=== PATIENT | male | born 1965 | race Caucasian/White ===

== ENCOUNTER 2018-09-17 06:10 | Emergency (ER) | payer BC ==
[2018-09-17 06:16] VITALS: BP 169/90; PULSE 70; RESP 18; TEMP 99.2
[2018-09-17] MEDS ORDERED: predniSONE 50 MG TAB PO STA (07:26)
[2018-09-17] MEDS ORDERED: IBUPROFEN 400 MG TAB PO STA (07:27)
--- NOTE | 2018-09-17 07:34 | ED ---
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 He states this feels similar to other extremities is had in the past the same problem he believes it is arthritis he denies any particular injury or strain and may have occurred with this he has no other complaints or any other type of injury or pain chills nausea times sweats shortness of breath abdominal pain. The loss of function to his extremities. States the pain is between 5-7/10 severity he states he's had before either steroid Dosepak or other anti-inflammatory pain medication and she helps. He denies any other injury no urinary or fecal incontinence issues. - Related Data Previous Rx's Medication Instructions Recorded Ibuprofen 800 mg PO Q6HR PRN #20 tablet 09/17/18 methylPREDNISolone Dose Pack 4 mg PO DIRECTED #21 package 09/17/18 [Medrol Dose Pack] Allergies Allergy/AdvReac Type Severity Reaction Status Date / Time No Known Allergies Allergy Verified 09/17/18 06:16 Review of Systems ROS Statement: Those systems with pertinent positive or pertinent negative responses have been documented in the HPI. ROS Other: All systems not noted in ROS Statement are negative. Past Medical History Past Medical History: Osteoarthritis (OA) History of Any Multi-Drug Resistant Organisms: None Reported Past Surgical History: No Surgical Hx Reported Past Psychological History: No Psychological Hx Reported Smoking Status: Never smoker Past Alcohol Use History: None Reported Past Drug Use History: None Reported General Exam - General Exam Comments Initial Comments: This is a well-developed well-nourished awake alert oriented 3 male Limitations: physical limitation General appearance: alert, anxious Eye exam: Present: normal appearance, PERRL, EOMI. Absent: scleral icterus, conjunctival injection, periorbital swelling Neck exam: Present: normal inspection, full ROM Respiratory exam: Present: normal lung sounds bilaterally. Absent: respiratory distress, wheezes, rales, rhonchi, stridor Cardiovascular Exam: Present: regular rate, normal rhythm, normal heart sounds. Absent: systolic murmur, diastolic murmur, rubs, gallop, clicks GI/Abdominal exam: Present: soft, normal bowel sounds. Absent: distended, tenderness, guarding, rebound, rigid Extremities exam: Present: normal inspection, full ROM, tenderness (Very minimal tenderness palpation of the mid inguinal crease no evidence of any herniations. No tenderness below this palpation DTRs are maintained to us bilateral patellar.), normal capillary refill. Absent: pedal edema, joint swelling, calf tenderness Back exam: Present: normal inspection. Absent: full ROM (Him a limited range of motion secondary to pain) Neurological exam: Present: alert, oriented X3, CN II-XII intact Psychiatric exam: Present: normal affect, normal mood Skin exam: Present: warm, dry, intact, normal color. Absent: rash Course Vital Signs 09/17/18 06:14 Temperature 99.2 F Pulse Rate 70 Respiratory 18 Rate Blood Pressure 169/90 O2 Sat by Pulse 96 Oximetry Medical Decision Making - Medical Decision Making No further workup was indicated this time patient did demonstrate some tenderness palpation with anal crease but no evidence of any herniation. He believes is identical to previous pains in the past due to his "arthritis" this is likely represent a variant of sciatica. Patient will be placed on anti- inflammatories he is up with his doctor return when necessary he is in agreement with this. Disposition Clinical Impression: Sciatica, right side Disposition: HOME SELF-CARE Condition: Good Prescriptions: Ibuprofen 800 mg PO Q6HR PRN #20 tablet PRN Reason: Pain methylPREDNISolone Dose Pack [Medrol Dose Pack] 4 mg PO DIRECTED #21 package Is patient prescribed a controlled substance at d/c from ED?: No Referrals: Paul Lea MD [Primary Care Provider] - 1-2 days
== END 2018-09-17 07:53 | disposition home or self-care (01) ==
LOC: EC 06:10
DX: M54.31 Sciatica, right side (principal); M19.90 Unspecified osteoarthritis, unspecified site
CPT/HCPCS: 99283

== ENCOUNTER → 2019-02-13 | Outpatient (CLI) | payer BC ==
--- NOTE | 2019-02-13 23:17 | CONS ---
CONSULTATION DATE OF SERVICE: 02/13/2019 This patient is a 53-year-old gentleman who has been evaluated in the sleep center for possible obstructive sleep apnea-hypopnea syndrome. HISTORY OF PRESENT ILLNESS/SLEEP-WAKE EVALUATION: The patient works 7 days a week from 8 p.m. until 11:30 a.m. and then he goes home and sleeps from around 1 p.m. until 4:30 p.m. Then he prepares to go to work. No problems with falling asleep. He falls asleep very quickly. He puts the TV on while he is in the bedroom to prevent barking of his dogs. He usually sleeps on the back position. He feels sleepy after awakening. He has difficulties paying attention during the day. [place] Sleepiness Scale is in the extremely high range of 24. PAST MEDICAL HISTORY: 1. Hyperlipidemia. 2. Narrowing of carotid artery. 3. 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 4. Nasal fracture in childhood. PAST SURGICAL HISTORY: Cholecystectomy. MEDICATIONS: Medication for hyperlipidemia; patient does not remember the name exactly. SOCIAL HISTORY: Negative for smoking or using alcohol. FAMILY HISTORY: Positive for Hodgkin's lymphoma in his father. REVIEW OF SYSTEMS: Tiredness and sleepiness during the day. PHYSICAL EXAMINATION: GENERAL: A pleasant gentleman without distress. VITAL SIGNS: BP 120/82, HR 64, RR 16, height 5 feet 9 inches, weight 235, body mass index 34.7, temperature 98.3, oxygen saturation at room air 95%. HEENT: PERRLA, EOMI. Evaluation of oropharynx showed tongue protrudes midline. Extremely low position of soft palate. Mallampati IV. Restriction of nasal breathing. NECK: Supple. No JVD. Thyroid is not palpable. Wide neck; 17 inches in circumference. LUNGS: Clear to percussion and to auscultation. Good air exchange. No wheezing or rhonchi. HEART: S1, S2 regular. No murmurs, gallops or rubs. ABDOMEN: Slightly obese. EXTREMITIES: No clubbing or cyanosis. QUALITATIVE EXECUTIVE RESEARCHER: Awake, alert, and oriented X3. Cranial nerves 2 to 7 intact. There is no fasciculation or atrophy. noted. No focal deficits observed. IMPRESSION: 1. Snoring, sleepiness, extremely low position of soft palate, wide neck; possible obstructive sleep apnea-hypopnea syndrome. 2. Insufficient sleep related to long work schedule 7 days a week. 3. History of narrowing of carotid artery. 4. Hyperlipidemia. 5. Status post nasal fracture in childhood; some restriction of nasal breathing; possibly nasal septum deviation. 6. Status post cholecystectomy. PLAN: 1. Home sleep apnea test for evaluation of patient's breathing during sleep. 2. CPAP/BiPAP titration if sleep study confirms obstructive sleep apnea-hypopnea syndrome. 3. Preferable position during sleep on the side. 4. No driving if patient feels any sleepiness. 5. I will see patient for follow up visit to explain results of testing and following plan. Thank you very much for referring this patient for consultation. Sincerely, Paolo Mason MD, PhD, FAASM Diplomat of [employer] [employer] [employer] [facility] [place] MMSONAML / MELINDA: [id number] /
== END | disposition home or self-care (01) ==
LOC: SLEEP 14:22
PROVIDERS: ATTEND Internal Medicine
DX: G47.33 Obstructive sleep apnea (adult) (pediatric) (principal); E78.5 Hyperlipidemia, unspecified; Z86.79 Personal history of other diseases of the circulatory system; Z90.49 Acquired absence of other specified parts of digestive tract; Z99.89 Dependence on other enabling machines and devices; Z87.81 Personal history of (healed) traumatic fracture
CPT/HCPCS: 99211

== ENCOUNTER → 2019-04-16 | Outpatient (CLI) | payer BC ==
[2019-04-16 16:15] LABS: Chol/HDL Ratio 3.57; LDL Cholesterol,Calculated 97.8 mg/dL (0.0-131.0); VLDL Calculation 15.2 mg/dL (5.00-40.00)
== END ==
LOC: LABWHC1 10:46
PROVIDERS: ATTEND Internal Medicine Interventional Cardiology
DX: E78.5 Hyperlipidemia, unspecified (principal)
CPT/HCPCS: 36415; 80061; 82550; 84450; 84460

== ENCOUNTER 2020-05-05 17:42 | Emergency (ER) | payer BC ==
[2020-05-05] MEDS ORDERED: ONDANSETRON 4 MG/2 ML VIAL IVP STA (18:58)
[2020-05-05] MEDS ORDERED: SODIUM CHLORIDE 0.9% 500 ML 500 ML IV ONE (18:58)
[2020-05-05] MEDS ORDERED: SODIUM CHLORIDE 0.9% 1,000 ML IV ONE (18:58)
[2020-05-05] MEDS ORDERED: KETOROLAC 15 MG/ML 1 ML VIAL IVP STA (18:58)
[2020-05-05] MEDS ORDERED: ACETAMINOPHEN TAB 500 MG TAB PO STA (18:58)
--- NOTE | 2020-05-05 19:04 | ED ---
General Adult HPI - General Chief complaint: Headache Stated complaint: headache/vomiting Time Seen by Provider: 05/05/20 19:00 Source: patient, RN notes reviewed, old records reviewed Mode of arrival: ambulatory Limitations: no limitations - History of Present Illness Initial comments: This a 54-year-old male who presents emergency Department complaining of nausea vomiting and diarrhea. Patient states nausea vomiting and diarrhea started 2 days ago. Patient states he was feeling better yesterday but again today it started up again and he is having quite a bit of abdominal soreness from the vomiting but he states there is no actual point tenderness. Patient states she has had a low-grade fever. Patient denies any difficulty breathing shortness of breath. Patient states he has a headache that was slowly worsening over the last 3 days. Patient states he is unable to keep any food or water down. Patient denies any chest pain or palpitations. - Related Data Home Medications Medication Instructions Recorded Confirmed Folic Acid 1 mg PO DAILY 05/05/20 05/05/20 Rosuvastatin Calcium [Crestor] 10 mg PO DAILY 05/05/20 05/05/20 Tofacitinib Citrate [Xeljanz Xr] 11 mg PO DAILY 05/05/20 05/05/20 metHOTREXate sodium [Methotrexate] 20 mg PO TU 05/05/20 05/05/20 Previous Rx's Medication Instructions Recorded Ondansetron Odt [Zofran Odt] 4 mg PO Q8HR PRN #10 tab 05/05/20 Allergies Allergy/AdvReac Type Severity Reaction Status Date / Time No Known Allergies Allergy Verified 05/05/20 20:19 Review of Systems ROS Statement: Those systems with pertinent positive or pertinent negative responses have been documented in the HPI. ROS Other: All systems not noted in ROS Statement are negative. Past Medical History Past Medical History: Hyperlipidemia, Osteoarthritis (OA) History of Any Multi-Drug Resistant Organisms: None Reported Past Surgical History: No Surgical Hx Reported Past Psychological History: No Psychological Hx Reported Smoking Status: Never smoker Past Alcohol Use History: None Reported Past Drug Use History: None Reported General Exam - General Exam Comments Initial Comments: GENERAL: Patient is well-developed and well-nourished. Patient is nontoxic and well- hydrated and is in moderate distress. ENT: Neck is soft and supple. No significant lymphadenopathy is noted. Oropharynx is clear. Moist mucous membranes. Neck has full range of motion without eliciting any pain. EYES: The sclera were anicteric and conjunctiva were pink and moist. Extraocular movements were intact and pupils were equal round and reactive to light. Eyelids were unremarkable. PULMONARY: Unlabored respirations. Good breath sounds bilaterally. No audible rales rhonchi or wheezing was noted. CARDIOVASCULAR: There is a regular rate and rhythm without any murmurs gallops or rubs. ABDOMEN: Soft and nontender with normal bowel sounds. SKIN: Skin is clear with no lesions or rashes and otherwise unremarkable. NEUROLOGIC: Patient is alert and oriented x3. Cranial nerves II through XII are grossly intact. Motor and sensory are also intact. Normal speech, volume and content. Symmetrical smile. MUSCULOSKELETAL: Normal extremities with adequate strength and full range of motion. No lower extremity swelling or edema. No calf tenderness. LYMPHATICS: No significant lymphadenopathy is noted PSYCHIATRIC: Normal psychiatric evaluation. Limitations: no limitations Course Vital Signs 05/05/20 17:47 Temperature 100.7 F H Pulse Rate 85 Respiratory 16 Rate Blood Pressure 145/89 O2 Sat by Pulse 98 Oximetry Medical Decision Making - Medical Decision Making I will back into the room to reevaluate the patient he was feeling considerably better. Chest x-ray shows no acute abnormality. - Lab Data Result diagrams: 05/05/20 19:05 05/05/20 19:05 Lab Results 05/05/20 05/05/20 05/05/20 Range/Units 19:05 19:05 19:05 WBC 6.6 (3.8-10.6) k/uL RBC 4.81 (4.30-5.90) m/uL Hgb 14.8 (13.0-17.5) gm/dL Hct 44.2 (39.0-53.0) % MCV 91.8 (80.0-100.0) fL MCH 30.7 (25.0-35.0) pg MCHC 33.5 (31.0-37.0) g/dL RDW 13.8 (11.5-15.5) % Plt Count 159 (150-450) k/uL MPV 7.0 Neutrophils % 82 % Lymphocytes % 9 % Monocytes % 7 % Eosinophils % 1 % Basophils % 0 % Neutrophils # 5.4 (1.3-7.7) k/uL Lymphocytes # 0.6 L (1.0-4.8) k/uL Monocytes # 0.5 (0-1.0) k/uL Eosinophils # 0.0 (0-0.7) k/uL Basophils # 0.0 (0-0.2) k/uL Sodium 137 (137-145) mmol/L Potassium 3.9 (3.5-5.1) mmol/L Chloride 104 (98-107) mmol/L Carbon Dioxide 21 L (22-30) mmol/L Anion Gap 12 mmol/L BUN 18 (9-20) mg/dL Creatinine 1.02 (0.66-1.25) mg/dL Est GFR (CKD-EPI)AfAm >90 (>60 ml/min/1.73 sqM) Est GFR (CKD-EPI)NonAf 82 (>60 ml/min/1.73 sqM) Glucose 111 H (74-99) mg/dL Calcium 8.9 (8.4-10.2) mg/dL Total Bilirubin 1.1 (0.2-1.3) mg/dL AST 42 (17-59) U/L ALT 28 (4-49) U/L Alkaline Phosphatase 64 (38-126) U/L Total Protein 7.4 (6.3-8.2) g/dL Albumin 4.5 (3.5-5.0) g/dL Coronavirus (PCR) Detected A (Not Detectd) Influenza Type A RNA (Not Detectd) Influenza Type B (PCR) (Not Detectd) 05/05/20 Range/Units 19:05 WBC (3.8-10.6) k/uL RBC (4.30-5.90) m/uL Hgb (13.0-17.5) gm/dL Hct (39.0-53.0) % MCV (80.0-100.0) fL MCH (25.0-35.0) pg MCHC (31.0-37.0) g/dL RDW (11.5-15.5) % Plt Count (150-450) k/uL MPV Neutrophils % % Lymphocytes % % Monocytes % % Eosinophils % % Basophils % % Neutrophils # (1.3-7.7) k/uL Lymphocytes # (1.0-4.8) k/uL Monocytes # (0-1.0) k/uL Eosinophils # (0-0.7) k/uL Basophils # (0-0.2) k/uL Sodium (137-145) mmol/L Potassium (3.5-5.1) mmol/L Chloride (98-107) mmol/L Carbon Dioxide (22-30) mmol/L Anion Gap mmol/L BUN (9-20) mg/dL Creatinine (0.66-1.25) mg/dL Est GFR (CKD-EPI)AfAm (>60 ml/min/1.73 sqM) Est GFR (CKD-EPI)NonAf (>60 ml/min/1.73 sqM) Glucose (74-99) mg/dL Calcium (8.4-10.2) mg/dL Total Bilirubin (0.2-1.3) mg/dL AST (17-59) U/L ALT (4-49) U/L Alkaline Phosphatase (38-126) U/L Total Protein (6.3-8.2) g/dL Albumin (3.5-5.0) g/dL Coronavirus (PCR) (Not Detectd) Influenza Type A RNA Not Detected (Not Detectd) Influenza Type B (PCR) Not Detected (Not Detectd) Disposition Clinical Impression: COVID-19 Disposition: HOME SELF-CARE Condition: Good Instructions (If sedation given, give patient instructions): Gastroenteritis (ED) Additional Instructions: patient is to return to the emergency department if he has any difficulty breathing or any new symptoms. Prescriptions: Ondansetron Odt [Zofran Odt] 4 mg PO Q8HR PRN #10 tab PRN Reason: Nausea And Vomiting Is patient prescribed a controlled substance at d/c from ED?: No Referrals: Paul Lea MD [Primary Care Provider] - 1-2 days Time of Disposition: 20:17
[2020-05-05 19:28] LABS: Basophils % (A) 0 %; Eosinophils % (A) 1 %; HCT 44.2 % (39.0-53.0); HGB 14.8 gm/dL (13.0-17.5); Lymphocytes # (A) 0.6 k/uL (1.0-4.8); Lymphocytes % (A) 9 %; MCH 30.7 pg (25.0-35.0); MCHC 33.5 g/dL (31.0-37.0); MCV 91.8 fL (80.0-100.0); Monocytes # (A) 0.5 k/uL (0-1.0); Monocytes % (A) 7 %; Neutrophils # (A) 5.4 k/uL (1.3-7.7); Neutrophils % (A) 82 %; Platelet Count 159 k/uL (150-450); RBC 4.81 m/uL (4.30-5.90); RDW 13.8 % (11.5-15.5); WBC 6.6 k/uL (3.8-10.6)
[2020-05-05 19:39] LABS: ALT 28 U/L (4-49); AST 42 U/L (17-59); African American GFR (CKD) >90 (>60 ml/min/1.73 sqM); Albumin 4.5 g/dL (3.5-5.0); Alkaline Phosphatase 64 U/L (38-126); Anion Gap 12 mmol/L; Blood Urea Nitrogen 18 mg/dL (9-20); Calcium 8.9 mg/dL (8.4-10.2); Carbon Dioxide 21 mmol/L (22-30); Chloride 104 mmol/L (98-107); Glucose 111 mg/dL (74-99); Non-African American GFR(CKD) 82 (>60 ml/min/1.73 sqM); Potassium 3.9 mmol/L (3.5-5.1); Sodium 137 mmol/L (137-145); Total Bilirubin 1.1 mg/dL (0.2-1.3); Total Protein 7.4 g/dL (6.3-8.2)
--- NOTE | 2020-05-05 19:51 | XR ---
EXAMINATION TYPE: XR chest 2V DATE OF EXAM: 05/05/2020 COMPARISON: NONE HISTORY: Fever and shortness of breath. TECHNIQUE: Frontal and lateral views of the chest are obtained. FINDINGS: There is no focal air space opacity, pleural effusion, or pneumothorax seen. The cardiac silhouette size is within normal limits. The osseous structures are intact. IMPRESSION: No acute cardiopulmonary process.
[2020-05-05] MEDS ORDERED: ONDANSETRON 4 MG ODT STARTER PACK 2 TAB BTL PO STA (20:22)
[2020-05-05 20:35] VITALS: BP 137/91; PULSE 69; RESP 19; TEMP 100
== END 2020-05-05 20:35 | disposition home or self-care (01) ==
LOC: EC 17:42
DX: U07.1 COVID-19 (principal); E78.5 Hyperlipidemia, unspecified; Z79.899 Other long term (current) drug therapy
CPT/HCPCS: 36415; 80053; 85025; 87502; 87635; 71046; 99284; 96374; 96375; 96361; J2405; J1885; S0119

== ENCOUNTER 2020-05-08 01:39 | Inpatient (IN) | payer BC ==
[2020-05-08] MEDS ORDERED: ACETAMINOPHEN TAB 500 MG TAB PO STA (01:53)
[2020-05-08] MEDS ORDERED: ALBUTEROL HFA INHALER INHALATION STA (01:53)
[2020-05-08] MEDS ORDERED: SODIUM CHLORIDE 0.9% 1,000 ML IV ONE (02:01)
[2020-05-08] MEDS ORDERED: ONDANSETRON 4 MG/2 ML VIAL IVP STA (02:01)
--- NOTE | 2020-05-08 02:13 | ED ---
General Adult HPI - General Source: patient, RN notes reviewed, old records reviewed Mode of arrival: ambulatory Limitations: no limitations <Aliyah Bocanegra - Last Filed: 05/08/20 03:06> - History of Present Illness -: days(s) Associated Symptoms: cough, fever/chills, other (Known coronavirus) Treatments Prior to Arrival: none <Omega De Jesus - Last Filed: 05/08/20 04:09> - General Chief complaint: Chest Pain Stated complaint: COVID + Time Seen by Provider: 05/08/20 01:53 - History of Present Illness Initial comments: Patient is a 54-year-old male who presents emergency department today with nausea episodes of vomiting and worsening difficulty in breathing. He complains of chest pain today. He states that he is worried is going to pass out. He was diagnosed with coronavirus infection 2 days ago. He is been experiencing symptoms for a total of 4 days. Patient reports that he feels weak and tired. He denies any recent Motrin or Tylenol. (Aliyah Bocanegra) - Related Data Home Medications Medication Instructions Recorded Confirmed Folic Acid 1 mg PO DAILY 05/05/20 05/05/20 Rosuvastatin Calcium [Crestor] 10 mg PO DAILY 05/05/20 05/05/20 Tofacitinib Citrate [Xeljanz Xr] 11 mg PO DAILY 05/05/20 05/05/20 metHOTREXate sodium [Methotrexate] 20 mg PO TU 05/05/20 05/05/20 Previous Rx's Medication Instructions Recorded Ondansetron Odt [Zofran Odt] 4 mg PO Q8HR PRN #10 tab 05/05/20 Allergies Allergy/AdvReac Type Severity Reaction Status Date / Time No Known Allergies Allergy Verified 05/08/20 01:44 Review of Systems ROS Other: All systems not noted in ROS Statement are negative. <Aliyah Bocanegra - Last Filed: 05/08/20 03:06> ROS Other: All systems not noted in ROS Statement are negative. <Omega De Jesus - Last Filed: 05/08/20 04:09> ROS Statement: Those systems with pertinent positive or pertinent negative responses have been documented in the HPI. Past Medical History Past Medical History: Hyperlipidemia, Osteoarthritis (OA) History of Any Multi-Drug Resistant Organisms: None Reported Past Surgical History: No Surgical Hx Reported Past Psychological History: No Psychological Hx Reported Smoking Status: Never smoker Past Alcohol Use History: None Reported Past Drug Use History: None Reported <Aliyah Bocanegra - Last Filed: 05/08/20 03:06> General Exam Limitations: no limitations General appearance: alert, in no apparent distress Head exam: Present: atraumatic, normocephalic, normal inspection Eye exam: Present: normal appearance, PERRL, EOMI. Absent: scleral icterus, conjunctival injection, periorbital swelling ENT exam: Present: normal exam, mucous membranes moist Neck exam: Present: normal inspection. Absent: tenderness, meningismus, lymphadenopathy Respiratory exam: Present: normal lung sounds bilaterally. Absent: respiratory distress, wheezes, rales, rhonchi, stridor Cardiovascular Exam: Present: regular rate, normal rhythm, normal heart sounds. Absent: systolic murmur, diastolic murmur, rubs, gallop, clicks GI/Abdominal exam: Present: soft, normal bowel sounds. Absent: distended, tenderness, guarding, rebound, rigid Extremities exam: Present: normal inspection, full ROM, normal capillary refill. Absent: tenderness, pedal edema, joint swelling, calf tenderness Back exam: Present: normal inspection Neurological exam: Present: alert, oriented X3, CN II-XII intact Psychiatric exam: Present: normal affect, normal mood Skin exam: Present: warm, dry, intact, normal color. Absent: rash <Aliyah Bocanegra - Last Filed: 05/08/20 03:06> General appearance: alert, in no apparent distress Head exam: Present: atraumatic, normocephalic, normal inspection Eye exam: Present: normal appearance, PERRL, EOMI. Absent: scleral icterus, conjunctival injection, periorbital swelling ENT exam: Present: normal exam, mucous membranes moist Neck exam: Present: normal inspection. Absent: tenderness, meningismus, lymphadenopathy Respiratory exam: Present: normal lung sounds bilaterally. Absent: respiratory distress, wheezes, rales, rhonchi, stridor Cardiovascular Exam: Present: regular rate, normal rhythm, normal heart sounds. Absent: systolic murmur, diastolic murmur, rubs, gallop, clicks GI/Abdominal exam: Present: soft, normal bowel sounds. Absent: distended, tenderness, guarding, rebound, rigid Extremities exam: Present: normal inspection, full ROM, normal capillary refill. Absent: tenderness, pedal edema, joint swelling, calf tenderness Back exam: Present: normal inspection Neurological exam: Present: alert, oriented X3, CN II-XII intact Psychiatric exam: Present: normal affect, normal mood Skin exam: Present: warm, dry, intact, normal color. Absent: rash <Omega De Jesus - Last Filed: 05/08/20 04:09> - General Exam Comments Initial Comments: 54-year-old male. Alert and oriented 3. Patient appears pale and diaphoretic. (Aliyah Bocanegra) Course <Omega De Jesus - Last Filed: 05/08/20 04:09> Vital Signs 05/08/20 05/08/20 05/08/20 01:40 02:00 03:00 Temperature 97.9 F Pulse Rate 86 62 57 L Respiratory 20 19 19 Rate Blood Pressure 141/86 122/73 116/72 O2 Sat by Pulse 97 99 99 Oximetry - Reevaluation(s) Reevaluation #1: 05/08/20 04:08 Medical record is reviewed (Omega De Jesus) Reevaluation #2: 05/08/20 04:08 Patient is a no rest for a stress (Omega De Jesus) Reevaluation #3: 05/08/20 04:08 Results questions answered (Omega De Jesus) - Consultations Consultation #1: Spoke with Dr. Lea WHO is okay for admission (Omega De Jesus) Medical Decision Making - Lab Data Result diagrams: 05/08/20 02:03 05/08/20 02:03 - Radiology Data Radiology results: report reviewed <Aliyah Bocanegra - Last Filed: 05/08/20 03:06> - Lab Data Result diagrams: 05/08/20 02:03 05/08/20 02:03 <Omega De Jesus - Last Filed: 05/08/20 04:09> - Medical Decision Making Patient is a 54-year-old male presents with 4 days of nausea difficulty breathing and chest pain. He was diagnosed with Covid on Sunday. Patient arrives to emergency department pale diaphoretic nauseated. He is started on IV fluids given Zofran. Patient's lab work do show a positive d-dimer Patient will have chest CT completed. Patient's case signed out to Dr. De Jesus At 3:00 AM. (Aliyah Bocanegra) 54 male here for ER with shortness of breath and chest pain positive for coronavirus positive coronavirus and pneumonia. Patient be admitted for cardiopulmonary monitoring and resuscitation (Omega De Jesus) - Lab Data Lab Results 05/08/20 05/08/20 05/08/20 Range/Units 02:03 02:03 02:03 WBC 5.1 (3.8-10.6) k/uL RBC 4.81 (4.30-5.90) m/uL Hgb 15.2 (13.0-17.5) gm/dL Hct 43.1 (39.0-53.0) % MCV 89.6 (80.0-100.0) fL MCH 31.5 (25.0-35.0) pg MCHC 35.2 (31.0-37.0) g/dL RDW 13.2 (11.5-15.5) % Plt Count 149 L (150-450) k/uL MPV 7.0 Neutrophils % 76 % Lymphocytes % 13 % Monocytes % 6 % Eosinophils % 1 % Basophils % 2 % Neutrophils # 3.9 (1.3-7.7) k/uL Lymphocytes # 0.7 L (1.0-4.8) k/uL Monocytes # 0.3 (0-1.0) k/uL Eosinophils # 0.0 (0-0.7) k/uL Basophils # 0.1 (0-0.2) k/uL PT 10.0 (9.0-12.0) sec INR 1.0 (<1.2) APTT 23.7 (22.0-30.0) sec D-Dimer 0.65 H (<0.60) mg/L FEU Sodium 134 L (137-145) mmol/L Potassium 3.6 (3.5-5.1) mmol/L Chloride 101 (98-107) mmol/L Carbon Dioxide 23 (22-30) mmol/L Anion Gap 10 mmol/L BUN 18 (9-20) mg/dL Creatinine 1.10 (0.66-1.25) mg/dL Est GFR (CKD-EPI)AfAm 86 (>60 ml/min/1.73 sqM) Est GFR (CKD-EPI)NonAf 75 (>60 ml/min/1.73 sqM) Glucose 138 H (74-99) mg/dL Plasma Lactic Acid Blake (0.7-2.0) mmol/L Calcium 8.7 (8.4-10.2) mg/dL Magnesium 1.9 (1.6-2.3) mg/dL Total Bilirubin 1.1 (0.2-1.3) mg/dL AST 38 (17-59) U/L ALT 26 (4-49) U/L Alkaline Phosphatase 60 (38-126) U/L Lactate Dehydrogenase 510 (313-618) U/L Troponin I (0.000-0.034) ng/mL C-Reactive Protein 16.0 H (<10.0) mg/L Total Protein 7.0 (6.3-8.2) g/dL Albumin 4.2 (3.5-5.0) g/dL 05/08/20 05/08/20 Range/Units 02:03 02:03 WBC (3.8-10.6) k/uL RBC (4.30-5.90) m/uL Hgb (13.0-17.5) gm/dL Hct (39.0-53.0) % MCV (80.0-100.0) fL MCH (25.0-35.0) pg MCHC (31.0-37.0) g/dL RDW (11.5-15.5) % Plt Count (150-450) k/uL MPV Neutrophils % % Lymphocytes % % Monocytes % % Eosinophils % % Basophils % % Neutrophils # (1.3-7.7) k/uL Lymphocytes # (1.0-4.8) k/uL Monocytes # (0-1.0) k/uL Eosinophils # (0-0.7) k/uL Basophils # (0-0.2) k/uL PT (9.0-12.0) sec INR (<1.2) APTT (22.0-30.0) sec D-Dimer (<0.60) mg/L FEU Sodium (137-145) mmol/L Potassium (3.5-5.1) mmol/L Chloride (98-107) mmol/L Carbon Dioxide (22-30) mmol/L Anion Gap mmol/L BUN (9-20) mg/dL Creatinine (0.66-1.25) mg/dL Est GFR (CKD-EPI)AfAm (>60 ml/min/1.73 sqM) Est GFR (CKD-EPI)NonAf (>60 ml/min/1.73 sqM) Glucose (74-99) mg/dL Plasma Lactic Acid Blake 1.3 (0.7-2.0) mmol/L Calcium (8.4-10.2) mg/dL Magnesium (1.6-2.3) mg/dL Total Bilirubin (0.2-1.3) mg/dL AST (17-59) U/L ALT (4-49) U/L Alkaline Phosphatase (38-126) U/L Lactate Dehydrogenase (313-618) U/L Troponin I <0.012 (0.000-0.034) ng/mL C-Reactive Protein (<10.0) mg/L Total Protein (6.3-8.2) g/dL Albumin (3.5-5.0) g/dL 05/08/20 EKG performed at 151 shows normal sinus rhythm possible anterior infarct. A bnormal EKG. Ventricular rate of 71 bpm. FL interval is 160 ms. QRS duration is 94 ms. QT QTc is 382/4:15 milliseconds. (Aliyah Bocanegra) - Radiology Data Chest x-ray shows subsegmental nodule in the right mid lung of uncertain etiology. Possible very patchy airspace disease and lung bases. Early Covid 19 pneumonia cannot be excluded. Atherosclerotic disease. CT imaging of chest without contrast suggested for follow-up. (Aliyah Bocanegra) Disposition <Aliyah Bocanegra - Last Filed: 05/08/20 03:06> Is patient prescribed a controlled substance at d/c from ED?: No <Omega De Jesus - Last Filed: 05/08/20 04:09> Clinical Impression: COVID-19, Pneumonia due to 2019 novel coronavirus Disposition: ADMITTED IP TO THIS HOSP Condition: Fair Referrals: Paul Lea MD [Primary Care Provider] - 1-2 days
[2020-05-08 02:29] LABS: Basophils # (A) 0.1 k/uL (0-0.2); Basophils % (A) 2 %; Eosinophils % (A) 1 %; HCT 43.1 % (39.0-53.0); HGB 15.2 gm/dL (13.0-17.5); Lymphocytes # (A) 0.7 k/uL (1.0-4.8); Lymphocytes % (A) 13 %; MCH 31.5 pg (25.0-35.0); MCHC 35.2 g/dL (31.0-37.0); MCV 89.6 fL (80.0-100.0); Monocytes # (A) 0.3 k/uL (0-1.0); Monocytes % (A) 6 %; Neutrophils # (A) 3.9 k/uL (1.3-7.7); Neutrophils % (A) 76 %; Platelet Count 149 k/uL (150-450); RBC 4.81 m/uL (4.30-5.90); RDW 13.2 % (11.5-15.5); WBC 5.1 k/uL (3.8-10.6)
--- NOTE | 2020-05-08 02:35 | XR ---
EXAM: XR Chest, 1 View CLINICAL HISTORY: ITS.REASON XR Reason: Suspected COVID-19 pneumonia TECHNIQUE: Frontal view of the chest. COMPARISON: 05/05/2020. FINDINGS: Lungs: A 0.4 cm nodule is noted at the periphery of the right midlung zone of uncertain etiology. Possible minimal early patchy airspace disease at the lung bases bilaterally. Pleural space: Unremarkable. No pneumothorax. Heart: Cardiomediastinal silhouette unremarkable. Mediastinum: See above. Bones/joints: Osteopenia. Vasculature: Atherosclerotic disease. IMPRESSION: 1. Subcentimeter nodule right midlung zone of uncertain etiology. 2. Possible very minimal patchy airspace disease at the lung bases. Early Covid-19 pneumonia cannot be excluded. 3. Atherosclerotic disease. 4. CT imaging of the chest without contrast is suggested for follow-up.
[2020-05-08] MEDS: SODIUM CHLORIDE 0.9% 1,000 ML IV SCH ×4 (02:37→20:02)
[2020-05-08 02:42] LABS: Partial Thromboplastin Time 23.7 sec (22.0-30.0)
[2020-05-08 02:44] LABS: D-Dimer 0.65 mg/L FEU (<0.60)
[2020-05-08 02:47] LABS: Albumin 4.2 g/dL (3.5-5.0); Calcium 8.7 mg/dL (8.4-10.2); Magnesium 1.9 mg/dL (1.6-2.3); Potassium 3.6 mmol/L (3.5-5.1); Total Bilirubin 1.1 mg/dL (0.2-1.3)
--- NOTE | 2020-05-08 03:30 | CT ---
EXAM: CT Angiography Chest With Intravenous Contrast CLINICAL HISTORY: Positive d-dimer. Evaluate for pulmonary embolism. TECHNIQUE: Axial computed tomographic angiography images of the chest with intravenous contrast. CTDI is 23.07 mGy and DLP is 499.4 mGy-cm. This CT exam was performed using one or more of the following dose reduction techniques: automated exposure control, adjustment of the mA and/or kV according to patient size, and/or use of iterative reconstruction technique. MIP reconstructed images were created and reviewed. COMPARISON: Plain film evaluation of the chest of 05/08/2020. FINDINGS: Pulmonary arteries: No central pulmonary embolism is detected. No peripheral pulmonary embolism is detected. Aorta: Atherosclerotic disease of the thoracic aorta. Atherosclerotic disease of the thoracic aorta is noted. Ascending thoracic aorta measures 4 cm in diameter and is dilated. Is there a history of hypertension? Lungs: Evaluation of the pulmonary parenchyma bilaterally reveals patchy fluid airspace disease bilaterally worrisome for Covid-19 pneumonia. The airways patent. No mass. Pleural space: Unremarkable. No significant effusion. No pneumothorax. Heart: Unremarkable. No cardiomegaly. No significant pericardial effusion. No evidence of RV dysfunction. Thyroid: The thyroid gland is unremarkable. Bones/joints: Mild degenerative disc disease of the thoracic spine. The sternum is unremarkable. Gentle dextroscoliosis of the thoracic spine. No acute fracture. No dislocation. Soft tissues: Unremarkable. Lymph nodes: Unremarkable. No enlarged lymph nodes. Liver: Fatty infiltration of the liver. Other findings: Hypoaeration. IMPRESSION: 1. No central or peripheral pulmonary emboli detected. 2. Dilatation of the ascending thoracic aorta. Is there a history of hypertension? 3. Findings compatible with Covid-19 pneumonia. 4. Hypoaeration.
[2020-05-08] MEDS ORDERED: AZITHROMYCIN 500 MG in SODIUM CHLORIDE 0.9% 250 ML IVPB STA (04:05)
[2020-05-08] MEDS ORDERED: PNEUMONIA PROTOCOL UTILIZED 1 EACH MISC PO PRN (04:05)
[2020-05-08] MEDS ORDERED: MORPHINE SULFATE 4 MG/ML SYRINGE IVP PRN (04:16)
[2020-05-08] MEDS ORDERED: KETOROLAC 15 MG/ML 1 ML VIAL IVP STA (04:16)
[2020-05-08] MEDS ORDERED: DEXTROSE 5%-0.45% NACL 1,000 ML IV ONE (04:16)
[2020-05-08] MEDS: ONDANSETRON 4 MG/2 ML VIAL IVP PRN ×2 (04:48→09:57)
[2020-05-08] MEDS: ALBUTEROL HFA INHALER INHALATION SCH ×4 (08:34→20:40)
[2020-05-08] MEDS: ENOXAPARIN 40 MG/0.4 ML SYRINGE SQ SCH (09:56)
[2020-05-08] MEDS: dexAMETHasone 2 MG TAB PO SCH (15:26)
[2020-05-08] MEDS: ZINC SULFATE 220 MG CAP PO SCH (15:26)
[2020-05-08] MEDS: ACETAMINOPHEN TAB 325 MG TAB PO PRN (15:27)
[2020-05-08] MEDS: FAMOTIDINE 20 MG/2 ML VIAL IV SCH (19:55)
--- NOTE | 2020-05-08 21:40 | P.HPIM ---
History of Present Illness H&P Date: 05/08/20 Chief Complaint: Shortness of breath Patient is a 54-year-old male with a known history of hyperlipidemia, osteoarthritis, rheumatoid arthritis currently on methotrexate presents to ER with complaints of nausea and episodes of vomiting and worsening shortness of br eath. Patient states that he was having chest tightness and worried he is going to pass out. Patient was diagnosed with COVID-19 infection 2 days ago and has been having symptoms for the past 4 days with shortness of breath cough which is mainly dry and fever. Patient feels very weak and tired. Patient presents to hospital for evaluation. Chest x-ray showed subcentimeter nodule right midlung zone of uncertain etiology. Possible very minimal patchy airspace disease in the lung bases. A lead COVID-19 pneumonia [address] be excluded. CT angiogram of the chest was done showed no centrilobular peripheral pulmonary emboli detected. Dilatation of the ascending thoracic aorta. Findings compatible with COVID-19 pneumonia. Hypoaeration. EKG showed normal sinus rhythm. Review of Systems Constitutional: Patient does have subjective fevers and generalized weakness and fatigue. Abdomen: Patient does nausea vomiting , no diarrhea and abdominal pain. Cardiovascular: Patient denies any chest pain . tightness +ve no palpitations. Respiratory: Patient does have cough without sputum production and shortness of breath. Neurologic: Patient denied any numbness or tingling headache. Musculoskeletal: Patient denies any complaints of joint swelling or deformity. Skin: Negative Psychiatric: Negative Endocrine: No heat or cold intolerance. No recent weight gain. Genitourinary: No dysuria or hematuria. All other 14 point ROS negative except the above Past Medical History Past Medical History: Hyperlipidemia, Osteoarthritis (OA) History of Any Multi-Drug Resistant Organisms: None Reported Past Surgical History: No Surgical Hx Reported Past Psychological History: No Psychological Hx Reported Smoking Status: Never smoker Past Alcohol Use History: None Reported Past Drug Use History: None Reported - Past Family History Father Family Medical History: No Reported History Medications and Allergies Home Medications Medication Instructions Recorded Confirmed Type Folic Acid 1 mg PO DAILY 05/05/20 05/08/20 History Ondansetron Odt [Zofran Odt] 4 mg PO Q8HR PRN #10 tab 05/05/20 05/08/20 Rx Rosuvastatin Calcium [Crestor] 10 mg PO HS 05/05/20 05/08/20 History Tofacitinib Citrate [Xeljanz Xr] 11 mg PO DAILY 05/05/20 05/08/20 History metHOTREXate sodium [Methotrexate] 22.5 mg PO TU 05/05/20 05/08/20 History Allergies Allergy/AdvReac Type Severity Reaction Status Date / Time No Known Allergies Allergy Verified 05/08/20 09:34 Physical Exam Vitals: Vital Signs Temp Pulse Resp BP Pulse Ox 05/08/20 04:59 97.8 F 61 19 122/82 99 05/08/20 04:00 56 L 19 118/73 99 05/08/20 03:00 57 L 19 116/72 99 05/08/20 02:00 62 19 122/73 99 05/08/20 01:40 97.9 F 86 20 141/86 97 Intake and Output 05/07/20 05/08/20 05/08/20 22:59 06:59 14:59 Intake Total 366 Balance 366 Intake: Intake, IV Titration 366 Amount Dextrose 5%-0.45% NaCl 1, 166 000 ml @ 83 mls/hr IV . Q12H3M [facility] Rx#:[id number] Sodium Chloride 0.9% 1, 200 000 ml @ 100 mls/hr IV . Q10H [facility] Rx#:[id number] Other: Weight 107 kg PHYSICAL EXAMINATION: Patient is lying in the bed comfortably, no acute distress, awake alert and oriented.. HEENT: Normocephalic. Neck is supple. Pupils reactive. Nostrils clear. Oral cavity is moist. Ears reveal no drainage. Neck reveals no JVD, carotid bruits, or thyromegaly. CHEST EXAMINATION: Trachea is central. Symmetrical expansion. Lung langston clear to auscultation and percussion. CARDIAC: Normal S1, S2 with no gallops. No murmurs ABDOMEN: Soft. Bowel sounds normal. No organomegaly. No abdominal bruits. Extremities: reveal no edema. No clubbing or cyanosis Neurologically awake, alert, oriented x3 with well-coordinated movements. No focal deficits noted Skin: No rash or skin lesions. Psychiatric: Coperative. Nonsuicidal Musculoskeletal: No joint swelling or deformity. Normal range of motion. Results CBC & Chem 7: 05/08/20 02:03 05/08/20 02:03 Labs: Abnormal Lab Results - Last 24 Hours (Table) 05/08/20 05/08/20 05/08/20 Range/Units 02:03 02:03 02:03 Plt Count 149 L (150-450) k/uL Lymphocytes # 0.7 L (1.0-4.8) k/uL D-Dimer 0.65 H (<0.60) mg/L FEU Sodium 134 L (137-145) mmol/L Glucose 138 H (74-99) mg/dL Ferritin 576.0 H (22.0-322.0) ng/mL C-Reactive Protein 16.0 H (<10.0) mg/L Thrombosis Risk Factor Assmnt - DVT/VTE Prophylaxis DVT/VTE Prophylaxis: Pharmacologic Prophylaxis ordered - Choose All That Apply Any of the Below Risk Factors Present?: Yes Each Factor Represents 1 point: Age 41-60 years, Serious lung disease incl. pneumonia (< 1month) Other Risk Factors: No Other congenital or acquired thrombophilia - If yes, enter type in comment: No Thrombosis Risk Factor Assessment Total Risk Factor Score: 2 Thrombosis Risk Factor Assessment Level: Low Risk Assessment and Plan Assessment: Acute COVID-19 pneumonia Elevated D-dimer and inflammatory markers due to COVID-19 infection. No PE noted on the CT chest Chest tightness. Ruled out ACS. Likely due to pneumonia Hyperlipidemia Osteoarthritis On immunosuppressive therapy with methotrexate DVT prophylaxis Lovenox Plan: Patient will be continued oxygen therapy, dexamethasone 6 mg daily and Lovenox. Continue with home medications and follow-up closely. Continue with contact and droplet precautions and ID will be consulted. Further recommendations based on the clinical course. Time with Patient: Greater than 30
--- NOTE | 2020-05-09 00:45 | CONS ---
CONSULTATION DATE OF SERVICE: 05/08/2020 REASON FOR CONSULTATION: COVID-19 infection. HISTORY OF PRESENT ILLNESS: The patient is a 54 -year-old male who presented to the ER with chief complaints of nausea and vomiting along with difficulty in breathing. The patient's symptoms have been going on for a few days. Apparently, the patient says he was seen in the ER about 2 days ago and he was diagnosed with COVID-19 infection. However was advised quarantine and no specific treatment. The patient symptoms overall going on for about 4 days. Before this presentation to the hospital, the patient was complaining of increasing shortness of breath on minimal exertion, unable to take a deep breath. The patient also have a cough which is moderate in intensity but not bringing up any sputum. No nausea, vomiting and did have an episode of diarrhea. No abdominal pain though. With these symptoms, the patient was evaluated by the ER physician. On arrival to the ER, the patient was afebrile. The patient was not hypoxic, currently 98% on room air. At the time of my evaluation, the patient did have a normal white count with lymphopenia. D-dimer was 0.65. Electrolytes have been normal, 576. Troponins were negative. CRP 16. Procalcitonin 0.08. The patient did have a chest x- ray with patchy airspace disease bilaterally. He also had a CT angiogram of the chest that was negative for PE. However did show findings compatible with COVID-19 pneumonia and dilatation of ascending thoracic aorta. The patient has been admitted to the hospital. The patient was started on Zithromax, Lovenox. Infectious Disease was consulted for further management. REVIEW OF SYSTEMS: Positive points have been mentioned in HPI. Rest of systems are negative. PAST MEDICAL HISTORY: Hypertension, osteoarthritis. PAST SURGICAL HISTORY: No surgery. SOCIAL HISTORY: No history of smoking, drinking or drug use. FAMILY HISTORY: No pertinent findings noticed. ALLERGIES: No known drug allergies. MEDICATIONS: The patient is currently on Tylenol, Ventolin, Zithromax, Lovenox Pepcid, morphine sulfate, Zofran and iron sulfate. PHYSICAL EXAMINATION: Blood pressure 109/66, pulse of 49, temperature 98.4. He is 98% on room air. General description: The patient is a middle-aged male lying in bed in no distress. No tachypnea or accessory muscles of respiration use. HEENT: Examination shows no pallor or scleral icterus. Oral mucous membranes dry. Neck: Trachea central. No thyromegaly. LUNGS: Unlabored breathing, decreased intensity of breath sounds. No wheeze. HEART: S1, S2. Regular rate and rhythm. ABDOMEN: Soft, no tenderness. No guarding or rigidity. Extremities: No edema of the feet. Skin examination: No rash or mass palpable. Neurological: Patient is awake, alert, oriented times three. Mood and affect normal. LABS: Hemoglobin is 15.3, white count 5.1. D-dimer is 0.65. Electrolytes have been normal. Liver enzymes are normal. LDH is normal. CRP 16. Procalcitonin was normal. DIAGNOSTIC IMPRESSION AND PLAN: Patient admitted to hospital with increasing shortness of breath in this patient who did have evidence of bilateral ground-glass opacities with diagnosis of a Covid 19 2 days ago, likely representing acute COVID-19 pneumonia in this patient apparently who is not responding to the symptomatic treatment. Clinically no evidence of any secondary bacterial pneumonia. PLAN: 1. We will start the patient on Lovenox, dexamethasone, and zinc sulfate. 2. The patient is currently not hypoxic and will not qualify for Remdesivir therapy. 3. With abnormality of the ascending aorta seen on the CT, patient will benefit from vascular surgery evaluation. 4. . 5. We will follow on his clinical condition and further adjust medication if needed. Thank you for this consultation. Will follow this patient along with you. MMODL / IJN: [id number] /
[2020-05-09] MEDS: AZITHROMYCIN 500 MG TAB PO SCH (04:04)
[2020-05-09 07:25] LABS: Basophils % (A) 0 %; Eosinophils % (A) 1 %; HCT 40.8 % (39.0-53.0); Lymphocytes # (A) 0.3 k/uL (1.0-4.8); Lymphocytes % (A) 10 %; MCH 31.5 pg (25.0-35.0); MCHC 34.4 g/dL (31.0-37.0); MCV 91.5 fL (80.0-100.0); Mean Platelet Volume 7.3; Monocytes # (A) 0.2 k/uL (0-1.0); Monocytes % (A) 5 %; Neutrophils # (A) 2.7 k/uL (1.3-7.7); Neutrophils % (A) 84 %; Platelet Count 124 k/uL (150-450); RBC 4.46 m/uL (4.30-5.90); RDW 13.1 % (11.5-15.5); WBC 3.2 k/uL (3.8-10.6)
--- NOTE | 2020-05-09 07:36 | XR ---
EXAMINATION TYPE: XR chest 1V portable DATE OF EXAM: 05/09/2020 COMPARISON: 05/08/2020 HISTORY: Cough TECHNIQUE: Single frontal view of the chest is obtained. FINDINGS: Bilateral diffuse interstitial process with areas of subsegmental consolidation but no ple ural effusion or pneumothorax. Chronic appearing left clavicular fracture. No interval change. Heart size normal. IMPRESSION: 1. Bilateral interstitial process with patchy infiltrate stable correlate for pneumonia. Otherwise co nsider CHF.
[2020-05-09] MEDS: ALBUTEROL HFA INHALER INHALATION SCH ×4 (08:06→20:09)
[2020-05-09] MEDS: ENOXAPARIN 40 MG/0.4 ML SYRINGE SQ SCH (10:14)
[2020-05-09] MEDS: FAMOTIDINE 20 MG/2 ML VIAL IV SCH ×2 (10:14→20:19)
[2020-05-09] MEDS: dexAMETHasone 2 MG TAB PO SCH (10:14)
[2020-05-09] MEDS: ZINC SULFATE 220 MG CAP PO SCH (10:14)
[2020-05-09] MEDS: SODIUM CHLORIDE 0.9% 1,000 ML IV SCH (10:15)
[2020-05-09 12:19] LABS: African American GFR (CKD) 110.3 (60.0-200.0); BUN/Creat Ratio 14.44 Ratio (12.00-20.00); Calcium 8.4 mg/dL (8.7-10.3); Non-African American GFR(CKD) 95.1 (60.0-200.0)
[2020-05-09] MEDS: ACETAMINOPHEN TAB 325 MG TAB PO PRN (18:07)
--- NOTE | 2020-05-10 01:24 | P.PN ---
Subjective Progress Note Date: 05/09/20 Principal diagnosis: Acute COVID-19 pneumonia Patient is a 54-year-old male with a known history of hyperlipidemia, osteoarthritis, rheumatoid arthritis currently on methotrexate presents to ER with complaints of nausea and episodes of vomiting and worsening shortness of breath. Patient states that he was having chest tightness and worried he is going to pass out. Patient was diagnosed with COVID-19 infection 2 days ago and has been having symptoms for the past 4 days with shortness of breath cough which is mainly dry and fever. Patient feels very weak and tired. Patient presents to hospital for evaluation. Chest x-ray showed subcentimeter nodule right midlung zone of uncertain etiology. Possible very minimal patchy airspace disease in the lung bases. A lead COVID-19 pneumonia cannot be excluded. CT angiogram of the chest was done showed no centrilobular peripheral pulmonary emboli detected. Dilatation of the ascending thoracic aorta. Findings compatible with COVID-19 pneumonia. Hypoaeration. EKG showed normal sinus rhythm. 05/09/2020 Patient is currently resting in the bed comfortably. Patient states that his breathing is better. Currently on oxygen at 93% on room air. Chest x-ray today showed bilateral interstitial process with patchy infiltrate stable correlate for pneumonia. Laboratory data showed WBC 3.2, hemoglobin 14.0 and platelets 124 and lymphocytes 0.3 electrolytes within normal limits. Patient is being continued dexamethasone and Lovenox. ID is on board. Follow- up CBC and inflammatory markers tomorrow. Denied any nausea vomiting abdominal pain or diarrhea. Tolerating oral diet. Current medications reviewed. Objective - Vital Signs Vital signs: Vital Signs Temp 97.9 F 05/09/20 12:51 Pulse 58 L 05/09/20 12:51 Resp 16 05/09/20 12:51 BP 125/76 05/09/20 12:51 Pulse Ox 93 L 05/09/20 12:51 Intake & Output 05/08/20 05/09/20 05/09/20 18:59 06:59 18:59 Intake Total 1150 Balance 1150 Intake: Intake, IV Titration 1150 Amount Sodium Chloride 0.9% 1, 350 000 ml @ 100 mls/hr IV . Q10H NICOLAS Rx#:[id number] Sodium Chloride 0.9% 1, 800 000 ml @ 100 mls/hr IV . Q10H NICOLAS Rx#:[id number] Other: Voiding Method Toilet # Voids 2 2 2 - Exam PHYSICAL EXAMINATION: Patient is lying in the bed comfortably, no acute distress, awake alert and oriented.. HEENT: Normocephalic. Neck is supple. Pupils reactive. Nostrils clear. Oral cavity is moist. Ears reveal no drainage. Neck reveals no JVD, carotid bruits, or thyromegaly. CHEST EXAMINATION: Trachea is central. Symmetrical expansion. Lung langston clear to auscultation and percussion. CARDIAC: Normal S1, S2 with no gallops. No murmurs ABDOMEN: Soft. Bowel sounds normal. No organomegaly. No abdominal bruits. Extremities: reveal no edema. No clubbing or cyanosis Neurologically awake, alert, oriented x3 with well-coordinated movements. No focal deficits noted Skin: No rash or skin lesions. Psychiatric: Coperative. Nonsuicidal Musculoskeletal: No joint swelling or deformity. Normal range of motion. - Labs CBC & Chem 7: 05/09/20 07:06 05/09/20 07:06 Labs: Abnormal Lab Results - Last 24 Hours (Table) 05/09/20 05/09/20 Range/Units 07:06 07:06 WBC 3.2 L (3.8-10.6) k/uL Plt Count 124 L (150-450) k/uL Lymphocytes # 0.3 L (1.0-4.8) k/uL Glucose 121 H (70-110) mg/dL Calcium 8.4 L (8.7-10.3) mg/dL Microbiology - Last 24 Hours (Table) 05/08/20 02:03 Blood Culture - Preliminary Blood No Growth after 24 hours Assessment and Plan Assessment: Acute COVID-19 pneumonia Elevated D-dimer and inflammatory markers due to COVID-19 infection. No PE noted on the CT chest Chest tightness. Ruled out ACS. Likely due to pneumonia Hyperlipidemia Osteoarthritis On immunosuppressive therapy with methotrexate DVT prophylaxis Lovenox Plan: Patient will be continued oxygen therapy, dexamethasone 6 mg daily and Lovenox. Continue with home medications and follow-up closely. Continue with contact and droplet precautions and ID is following. Further recommendations based on the clinical course. Time with Patient: Greater than 30
[2020-05-10] MEDS: ONDANSETRON 4 MG/2 ML VIAL IVP PRN (02:15)
--- NOTE | 2020-05-10 04:09 | PN ---
PROGRESS NOTE DATE OF SERVICE: 05/09/2020 REASON FOR FOLLOWUP: COVID-19 infection. INTERVAL HISTORY: The patient is currently afebrile. The patient is feeling better today compared to yesterday. Patient denies having any chest pain. He did have some cough. No nausea, no vomiting. No abdominal pain or diarrhea. PHYSICAL EXAMINATION: Blood pressure 138/72 with a pulse of 59, temperature 97.4. He is 94% on room air. General description is a middle-aged male up in the bed in no distress. RESPIRATORY SYSTEM: Unlabored breathing with decreased intensity of breath sounds. No wheeze. HEART: S1, S2. Regular rate and rhythm. ABDOMEN: Soft, no tenderness. LABS: Hemoglobin is 14, white count 3.2. Creatinine 0.9. DIAGNOSTIC IMPRESSION AND PLAN: Patient with acute COVID-19 pneumonia in this patient who seemed to have shown clinical response to current treatment of dexamethasone, Lovenox, Zinc and steroids, to continue. To repeat inflammatory marker tomorrow. Continue with supportive care. MMODL / IJN: [id number] /
[2020-05-10 06:01] LABS: Basophils # (A) 0.1 k/uL (0-0.2); Basophils % (A) 1 %; Eosinophils % (A) 1 %; HCT 40.9 % (39.0-53.0); Lymphocytes # (A) 0.3 k/uL (1.0-4.8); Lymphocytes % (A) 5 %; MCH 31.2 pg (25.0-35.0); MCHC 34.3 g/dL (31.0-37.0); MCV 90.7 fL (80.0-100.0); Mean Platelet Volume 7.4; Monocytes # (A) 0.4 k/uL (0-1.0); Monocytes % (A) 6 %; Neutrophils # (A) 5.7 k/uL (1.3-7.7); Neutrophils % (A) 86 %; Platelet Count 154 k/uL (150-450); RBC 4.51 m/uL (4.30-5.90); RDW 13.2 % (11.5-15.5); WBC 6.6 k/uL (3.8-10.6)
[2020-05-10] MEDS: FAMOTIDINE 20 MG/2 ML VIAL IV SCH (06:19)
[2020-05-10] MEDS: ALBUTEROL HFA INHALER INHALATION SCH ×4 (08:51→21:26)
[2020-05-10 09:47] LABS: African American GFR (CKD) 97.1 (60.0-200.0); C Reactive Protein <0.4 mg/dL (0.0-0.8); Calcium 8.8 mg/dL (8.7-10.3); Carbon Dioxide 28.1 mmol/L (21.6-31.8); Chloride 99 mmol/L (96-109); Ferritin 585.3 ng/mL (22.0-322.0); Glucose 109 mg/dL (70-110); Non-African American GFR(CKD) 83.8 (60.0-200.0); Potassium 3.8 mmol/L (3.5-5.5); Sodium 138 mmol/L (135-145)
[2020-05-10] MEDS: dexAMETHasone 2 MG TAB PO SCH (10:11)
[2020-05-10] MEDS: AZITHROMYCIN 500 MG TAB PO SCH (10:11)
[2020-05-10] MEDS: ZINC SULFATE 220 MG CAP PO SCH (10:12)
[2020-05-10] MEDS: ENOXAPARIN 40 MG/0.4 ML SYRINGE SQ SCH (10:12)
[2020-05-10 12:21] VITALS: RESP 16
--- NOTE | 2020-05-10 14:57 | PN ---
PROGRESS NOTE DATE OF SERVICE: 05/10/2020 REASON FOR FOLLOWUP: COVID-19 infection. INTERVAL HISTORY: Patient is currently afebrile patient is breathing comfortably, feeling better. Denies having chest pain. Minimal cough. No nausea, no vomiting. No abdominal pain, no diarrhea. PHYSICAL EXAMINATION: Blood pressure 110/77, pulse of 73, temperature 99. He is 94% on room air. General description is a middle-aged male, lying in bed in no distress. RESPIRATORY SYSTEM: Unlabored breathing, decreased breath sounds at the base. HEART: S1, S2. Regular rate and rhythm. ABDOMEN: Soft, no tenderness. LABS: Hemoglobin 14, white count 6.6. CRP is normal. Lytes. IMPRESSION/PLAN: 1. Patient with acute COVID-19 infection, overall clinical improvement with current treatment Zithromax and Lovenox and patient wants to go home, finishing therapy with dexamethasone for another 7 to 8 weeks. 2. Consider Eliquis and different feeding course and close outpatient followup. MMODL / IJN: [id number] /
--- NOTE | 2020-05-10 15:09 | P.PN ---
Subjective Progress Note Date: 05/10/20 Principal diagnosis: Covid19 pneumonia. This is a 54-year-old white male with known history of rheumatoid arthritis who has been diagnosed with interstitial bilateral pneumonia with Covid 19 diagnosis. The patient feels very fatigued today. Objective - Vital Signs Vital signs: Vital Signs Temp 99.0 F 05/10/20 12:19 Pulse 73 05/10/20 12:19 Resp 16 05/10/20 12:19 BP 129/77 05/10/20 12:19 Pulse Ox 94 L 05/10/20 12:19 Intake & Output 05/09/20 05/10/20 05/10/20 18:59 06:59 18:59 Output Total 50 Balance -50 Output: Emesis 50 Other: Voiding Method Toilet Toilet # Voids 2 1 2 - Constitutional General appearance: Present: mild distress - EENT Eyes: Absent: abnormal pupil - Respiratory Respiratory: bilateral: diminished - Cardiovascular Rhythm: regular Heart sounds: normal: S1, S2 Abnormal Heart Sounds: Absent: S3 Gallop - Gastrointestinal General gastrointestinal: Present: soft. Absent: tenderness - Neurologic Neurologic: Present: CNII-XII intact - Musculoskeletal Musculoskeletal: Present: generalized weakness - Psychiatric Psychiatric: Present: A&O x's 3 - Labs CBC & Chem 7: 05/10/20 05:36 05/10/20 05:36 Labs: Abnormal Lab Results - Last 24 Hours (Table) 05/10/20 05/10/20 05/10/20 Range/Units 05:36 05:36 05:36 Lymphocytes # 0.3 L (1.0-4.8) k/uL D-Dimer 0.64 H (<0.60) mg/L FEU Ferritin 585.3 H (22.0-322.0) ng/mL Microbiology - Last 24 Hours (Table) 05/08/20 02:03 Blood Culture - Preliminary Blood No Growth after 48 hours Assessment and Plan (1) COVID-19 Current Visit: Yes Status: Acute Code(s): U07.1 - COVID-19 SNOMED Code(s): 655693487 Plan: Continue current regimen treatment We will consult pulmonology if necessary. See orders otherwise. Time with Patient: Greater than 30
[2020-05-10] MEDS: FAMOTIDINE 20 MG TAB PO SCH (20:39)
[2020-05-11 05:39] VITALS: BP 142/86; PULSE 69
[2020-05-11] MEDS: AZITHROMYCIN 500 MG TAB PO SCH (05:50)
[2020-05-11] MEDS: ACETAMINOPHEN TAB 325 MG TAB PO PRN (05:50)
[2020-05-11 07:23] LABS: HCT 40.7 % (39.0-53.0); HGB 14.3 gm/dL (13.0-17.5); MCH 31.6 pg (25.0-35.0); MCHC 35.1 g/dL (31.0-37.0); Mean Platelet Volume 7.3; Platelet Count 138 k/uL (150-450); RBC 4.53 m/uL (4.30-5.90); RDW 13.1 % (11.5-15.5); WBC 8.3 k/uL (3.8-10.6)
[2020-05-11] MEDS: ALBUTEROL HFA INHALER INHALATION SCH (08:55)
--- NOTE | 2020-05-11 08:55 | P.DS ---
Providers Date of admission: 05/08/20 04:06 Attending physician: Paul Lea Consults: 05/08/20 04:05 Consult Physician Routine Consulting Provider: Emely Dawkins Consult Reason/Comments: covid Do you want consulting provider notified?: Yes Primary care physician: Paul Lea - Discharge Diagnosis(es) (1) COVID-19 Current Visit: Yes Status: Acute Hospital Course: This is a discharge summary 54-year-old white male essentially admitted for code and pneumonia. After Zithromax and zinc and appropriate supportive care, the patient improved and will be discharged on antibiotic treatment with dexamethasone oral taper as per infectious disease for 6-7 weeks. The patient's follow-up with me in in one week. Patient Condition at Discharge: Fair Plan - Discharge Summary Discharge Rx Participant: No New Discharge Prescriptions: New dexAMETHasone [Hexadrol] 6 mg PO DAILY 42 Days #84 tab Zinc Sulfate [Orazinc] 220 mg PO DAILY #30 cap Albuterol Inhaler [Ventolin Hfa Inhaler] 2 puff INHALATION RT-QID #1 puff Azithromycin [Zithromax] 500 mg PO Q24H #3 tab Continue metHOTREXate sodium [Methotrexate] 22.5 mg PO TU Rosuvastatin Calcium [Crestor] 10 mg PO HS Tofacitinib Citrate [Xeljanz Xr] 11 mg PO DAILY Folic Acid 1 mg PO DAILY Ondansetron Odt [Zofran ODT] 4 mg PO Q8HR PRN #10 tab PRN Reason: Nausea And Vomiting Discharge Medication List Folic Acid 1 mg PO DAILY 05/05/20 [History] Ondansetron Odt [Zofran ODT] 4 mg PO Q8HR PRN #10 tab 05/05/20 [Rx] Rosuvastatin Calcium [Crestor] 10 mg PO HS 05/05/20 [History] Tofacitinib Citrate [Xeljanz Xr] 11 mg PO DAILY 05/05/20 [History] metHOTREXate sodium [Methotrexate] 22.5 mg PO TU 05/05/20 [History] Albuterol Inhaler [Ventolin Hfa Inhaler] 2 puff INHALATION RT-QID #1 puff 05/11/20 [Rx] Azithromycin [Zithromax] 500 mg PO Q24H #3 tab 05/11/20 [Rx] Zinc Sulfate [Orazinc] 220 mg PO DAILY #30 cap 05/11/20 [Rx] dexAMETHasone [Hexadrol] 6 mg PO DAILY 42 Days #84 tab 05/11/20 [Rx] Follow up Appointment(s)/Referral(s): Paul Lea MD [Primary Care Provider] - 1 Week Discharge Disposition: HOME SELF-CARE
[2020-05-11] MEDS: ZINC SULFATE 220 MG CAP PO SCH (08:56)
[2020-05-11] MEDS: FAMOTIDINE 20 MG TAB PO SCH (08:56)
[2020-05-11] MEDS: ENOXAPARIN 40 MG/0.4 ML SYRINGE SQ SCH (08:56)
[2020-05-11] MEDS: dexAMETHasone 2 MG TAB PO SCH (08:56)
[2020-05-11 10:32] VITALS: TEMP 99
[2020-05-11 10:54] LABS: African American GFR (CKD) 97.1 (60.0-200.0); Albumin/Globulin Ratio 1.82 (1.60-3.17); Anion Gap 11.8 mmol/L (4.00-12.00); Calcium 8.8 mg/dL (8.7-10.3); Carbon Dioxide 27.2 mmol/L (21.6-31.8); Globulin 2.2 g/dL (1.6-3.3); Non-African American GFR(CKD) 83.8 (60.0-200.0); Potassium 3.6 mmol/L (3.5-5.5); Total Protein 6.2 g/dL (6.2-8.2)
== END 2020-05-11 10:07 | disposition home or self-care (01) | DRG 177 ==
LOC: EC 01:39 → 6NMEDSUR 04:06
PROVIDERS: ADMIT Family Medicine; ATTEND Family Medicine
DX: U07.1 COVID-19 (principal); J12.89 Other viral pneumonia; D72.810 Lymphocytopenia; E78.5 Hyperlipidemia, unspecified; I10 Essential (primary) hypertension; I77.810 Thoracic aortic ectasia; M06.9 Rheumatoid arthritis, unspecified; M19.90 Unspecified osteoarthritis, unspecified site; Z79.899 Other long term (current) drug therapy; R79.1 Abnormal coagulation profile
CPT/HCPCS: 36415; 71045; 71275; 80048; 80053; 82728; 83605; 83615; 83735; 84145; 84484; 85025; 85027; 85379; 85610; 85730; 86140; 87040; 93005; 94640; 96361; 96365; 96375; 96376; 99285

== ENCOUNTER → 2020-05-19 | Outpatient (CLI) | payer BC | END | disposition home or self-care (01) | LOC: LABWHC1 12:46 | PROVIDERS: ATTEND Family Medicine | DX: Z20.828 Contact with and (suspected) exposure to other viral communicable diseases (principal) | CPT/HCPCS: U0003; C9803 ==

== ENCOUNTER → 2020-07-13 | Outpatient (CLI) | payer BC ==
[2020-07-13 21:27] LABS: African American GFR (CKD) 86.5 (60.0-200.0); Anion Gap 11.3 mmol/L (4.00-12.00); BUN/Creat Ratio 16.36 Ratio (12.00-20.00); Calcium 9.5 mg/dL (8.7-10.3); Carbon Dioxide 26.7 mmol/L (21.6-31.8); Non-African American GFR(CKD) 74.6 (60.0-200.0); Potassium 3.7 mmol/L (3.5-5.5)
== END | disposition home or self-care (01) ==
LOC: LABWHC1 12:58
PROVIDERS: ATTEND Internal Medicine Interventional Cardiology
DX: I10 Essential (primary) hypertension (principal)
CPT/HCPCS: 36415; 80048

== ENCOUNTER 2021-01-26 10:14 | Observation (INO) | payer BC ==
--- NOTE | 2021-01-26 10:52 | ED ---
General Adult HPI - General Chief complaint: Skin/Abscess/Foreign Body Stated complaint: left side head pain, eye twitching Time Seen by Provider: 01/26/21 10:28 Source: patient, RN notes reviewed Mode of arrival: ambulatory Limitations: no limitations - History of Present Illness Initial comments: This is a 55-year-old male who states over last 2-3 days she's had some left- sided facial pain the left ear pain and this morning started developing a rash to the left side of his neck and head. He denies any overt fevers chills nausea vomiting sweats he does state his left eye has been twitching. He states the ear pain that he is experiencing is about 5/10 severity. No other complaints or modifying factors no focal weakness no blurry vision no dizziness no trauma no new soaps fabric softeners or detergents. - Related Data Home Medications Medication Instructions Recorded Confirmed Folic Acid 1 mg PO DAILY 05/05/20 05/08/20 Rosuvastatin Calcium [Crestor] 10 mg PO HS 05/05/20 05/08/20 Tofacitinib Citrate [Xeljanz Xr] 11 mg PO DAILY 05/05/20 05/08/20 metHOTREXate sodium [Methotrexate] 22.5 mg PO TU 05/05/20 05/08/20 Previous Rx's Medication Instructions Recorded Ondansetron Odt [Zofran ODT] 4 mg PO Q8HR PRN #10 tab 05/05/20 Albuterol Inhaler [Ventolin Hfa 2 puff INHALATION RT-QID #1 puff 05/11/20 Inhaler] Azithromycin [Zithromax] 500 mg PO Q24H #3 tab 05/11/20 Zinc Sulfate [Orazinc] 220 mg PO DAILY #30 cap 05/11/20 dexAMETHasone ORAL [Hexadrol] 6 mg PO DAILY 42 Days #84 tab 05/11/20 Allergies Allergy/AdvReac Type Severity Reaction Status Date / Time No Known Allergies Allergy Verified 01/26/21 10:25 Review of Systems ROS Statement: Those systems with pertinent positive or pertinent negative responses have been documented in the HPI. ROS Other: All systems not noted in ROS Statement are negative. Past Medical History Past Medical History: Hyperlipidemia, Osteoarthritis (OA) Additional Past Medical History / Comment(s): COVID in 05/07 with some cardiac affects [facility] History of Any Multi-Drug Resistant Organisms: None Reported Past Surgical History: No Surgical Hx Reported Past Psychological History: No Psychological Hx Reported Smoking Status: Never smoker Past Alcohol Use History: None Reported Past Drug Use History: None Reported - Past Family History Father Family Medical History: No Reported History General Exam - General Exam Comments Initial Comments: This is a well-developed well-nourished awake alert oriented 3 male Limitations: no limitations General appearance: alert, anxious Head exam: Present: normocephalic, other (Rash noted on the left side of the scalp midline occipital parietal scalp area) Eye exam: Present: normal appearance, PERRL, EOMI. Absent: scleral icterus, conjunctival injection, periorbital swelling ENT exam: Present: normal oropharynx, mucous membranes moist, other (The left hepatic membranes dull with evidence of fluid behind the membrane) Neck exam: Present: normal inspection, full ROM, other (No surgery or bruits some rash noted in the left side of the neck in the midline. Additionally there is some anterior upper chest wall on the left side rash also.). Absent: tender ness, meningismus, lymphadenopathy Respiratory exam: Present: normal lung sounds bilaterally. Absent: respiratory distress, wheezes, rales, rhonchi, stridor Cardiovascular Exam: Present: regular rate, normal rhythm, normal heart sounds. Absent: systolic murmur, diastolic murmur, rubs, gallop, clicks GI/Abdominal exam: Present: soft, normal bowel sounds. Absent: distended, tenderness, guarding, rebound, rigid Extremities exam: Present: normal inspection, full ROM, normal capillary refill. Absent: tenderness, pedal edema, joint swelling, calf tenderness Back exam: Present: normal inspection Neurological exam: Present: alert, oriented X3, CN II-XII intact Psychiatric exam: Present: normal affect, normal mood Skin exam: Present: warm, dry, rash (As noted above), erythema Course Vital Signs 01/26/21 01/26/21 01/26/21 10:20 11:00 11:30 Temperature 98.8 F Pulse Rate 57 L 52 L 56 L Respiratory 18 16 16 Rate Blood Pressure 146/97 133/78 108/58 O2 Sat by Pulse 97 96 97 Oximetry 01/26/21 01/26/21 01/26/21 12:00 12:30 13:00 Temperature Pulse Rate 54 L 50 L 51 L Respiratory 16 18 18 Rate Blood Pressure 124/81 107/58 107/72 O2 Sat by Pulse 96 96 97 Oximetry Medical Decision Making - Medical Decision Making I did discuss findings with patient family as well as with Dr. Lea patient does have evidence of a left otitis media along with herpes zoster of the scalp and neck region. Due to the symptom complex patient will be admitted place on IV antivirals infectious disease will be consulted. - Lab Data Result diagrams: 01/26/21 10:46 01/26/21 10:46 Lab Results 01/26/21 01/26/21 Range/Units 10:46 10:46 WBC 6.2 (3.8-10.6) k/uL RBC 4.87 (4.30-5.90) m/uL Hgb 15.2 (13.0-17.5) gm/dL Hct 44.5 (39.0-53.0) % MCV 91.4 (80.0-100.0) fL MCH 31.2 (25.0-35.0) pg MCHC 34.1 (31.0-37.0) g/dL RDW 13.6 (11.5-15.5) % Plt Count 167 (150-450) k/uL MPV 7.5 Neutrophils % 77 % Lymphocytes % 10 % Monocytes % 8 % Eosinophils % 2 % Basophils % 1 % Neutrophils # 4.8 (1.3-7.7) k/uL Lymphocytes # 0.6 L (1.0-4.8) k/uL Monocytes # 0.5 (0-1.0) k/uL Eosinophils # 0.1 (0-0.7) k/uL Basophils # 0.0 (0-0.2) k/uL Sodium 137 (137-145) mmol/L Potassium 4.1 (3.5-5.1) mmol/L Chloride 104 (98-107) mmol/L Carbon Dioxide 24 (22-30) mmol/L Anion Gap 9 mmol/L BUN 16 (9-20) mg/dL Creatinine 0.96 (0.66-1.25) mg/dL Est GFR (CKD-EPI)AfAm >90 (>60 ml/min/1.73 sqM) Est GFR (CKD-EPI)NonAf 88 (>60 ml/min/1.73 sqM) Glucose 102 H (74-99) mg/dL Calcium 9.4 (8.4-10.2) mg/dL Magnesium 2.0 (1.6-2.3) mg/dL Total Bilirubin 1.1 (0.2-1.3) mg/dL AST 32 (17-59) U/L ALT 24 (4-49) U/L Alkaline Phosphatase 58 (38-126) U/L Creatine Kinase 134 (55-170) U/L Total Protein 7.0 (6.3-8.2) g/dL Albumin 4.4 (3.5-5.0) g/dL - Radiology Data Radiology results: report reviewed (Imaging reviewed no acute findings.), image reviewed Disposition Clinical Impression: Herpes zoster, Otitis media of left ear, Cephalgia Disposition: ADMITTED IP TO THIS [facility] Condition: Fair Referrals: Paul Lea MD [Primary Care Provider] - 1-2 days
[2021-01-26 10:56] LABS: Basophils % (A) 1 %; Eosinophils # (A) 0.1 k/uL (0-0.7); Eosinophils % (A) 2 %; HCT 44.5 % (39.0-53.0); HGB 15.2 gm/dL (13.0-17.5); Lymphocytes # (A) 0.6 k/uL (1.0-4.8); Lymphocytes % (A) 10 %; MCH 31.2 pg (25.0-35.0); MCHC 34.1 g/dL (31.0-37.0); MCV 91.4 fL (80.0-100.0); Mean Platelet Volume 7.5; Monocytes # (A) 0.5 k/uL (0-1.0); Monocytes % (A) 8 %; Neutrophils # (A) 4.8 k/uL (1.3-7.7); Neutrophils % (A) 77 %; Platelet Count 167 k/uL (150-450); RBC 4.87 m/uL (4.30-5.90); RDW 13.6 % (11.5-15.5); WBC 6.2 k/uL (3.8-10.6)
[2021-01-26 11:08] LABS: ALT 24 U/L (4-49); AST 32 U/L (17-59); African American GFR (CKD) >90 (>60 ml/min/1.73 sqM); Albumin 4.4 g/dL (3.5-5.0); Alkaline Phosphatase 58 U/L (38-126); Anion Gap 9 mmol/L; Blood Urea Nitrogen 16 mg/dL (9-20); Calcium 9.4 mg/dL (8.4-10.2); Carbon Dioxide 24 mmol/L (22-30); Chloride 104 mmol/L (98-107); Creatine Kinase 134 U/L (55-170); Glucose 102 mg/dL (74-99); Non-African American GFR(CKD) 88 (>60 ml/min/1.73 sqM); Potassium 4.1 mmol/L (3.5-5.1); Sodium 137 mmol/L (137-145); Total Bilirubin 1.1 mg/dL (0.2-1.3)
[2021-01-26] MEDS ORDERED: KETOROLAC 15 MG/ML 1 ML VIAL IVP STA (11:34)
--- NOTE | 2021-01-26 11:47 | CT ---
EXAMINATION TYPE: CT brain wo con DATE OF EXAM: 01/26/2021 COMPARISON: None HISTORY: Headache, infection suspected. CT DLP: 1190.4 mGycm Automated exposure control for dose reduction was used. FINDINGS: Persistent midline. No midline shift or mass effect. No acute hemorrhage. Ventricular system is akbar tible with patient's age. Calvarium intact. Slight nasal septal deviation. Sinuses and mastoid air cells are clear. Orbits are symmetric. Sella t urcica has a normal appearance. Cerebellar tonsils are low-lying in position. IMPRESSION: 1. Low-lying cerebellar tonsils correlate for Chiari I malformation. Follow-up MRI suggested. 2. No acute intracranial hemorrhage or mass effect.
[2021-01-26] MEDS ORDERED: cefTRIAXone IN SWFI 1,000 MG/10 ML SYRINGE IVP STA (12:55)
[2021-01-26] MEDS ORDERED: ACETAMINOPHEN TAB 325 MG TAB PO PRN (13:36)
[2021-01-26] MEDS ORDERED: NALOXONE 0.4 MG/ML 1 ML VIAL IV PRN (13:36)
[2021-01-26] MEDS ORDERED: SODIUM CHLORIDE 0.9% 1,000 ML IV STA (13:38)
[2021-01-26] MEDS: ALBUTEROL NEBULIZED 2.5 MG/3 ML INHALATION SCH ×2 (15:57→21:20)
[2021-01-26] MEDS: KETOROLAC 15 MG/ML 1 ML VIAL IVP PRN (16:07)
[2021-01-26] MEDS: ACYCLOVIR SODIUM 1,000 MG in SODIUM CHLORIDE 0.9% 250 ML IVPB SCH (16:07)
--- NOTE | 2021-01-26 20:47 | P.HPIM ---
History of Present Illness H&P Date: 01/26/21 Chief Complaint: Scalp irritation with pain. This is a history of physical 55-year-old white male with known history of rheumatoid arthritis who comes in today with two-day history of worsening scalp rash. The C2 dermatome was noted to have significant maculovesicular rash. Zoster is diagnosed and he is admitted for pain control and appropriate treatment. Infectious disease has been consulted. History of remote COVID-19 infection. He states some ocular irritation and pressure feeling but no visual loss. Review of Systems Constitutional: Denies chills, Denies fever Eyes: denies blurred vision, denies pain Ears, nose, mouth and throat: Denies headache, Denies sore throat Cardiovascular: Denies chest pain, Denies shortness of breath Respiratory: Denies cough Integumentary: Reports as per HPI, Reports rash Neurological: Denies numbness, Denies weakness Endocrine: Denies fatigue, Denies weight change Past Medical History Past Medical History: Hyperlipidemia, Osteoarthritis (OA) Additional Past Medical History / Comment(s): COVID in 05/07 with some cardiac affects seeing [facility] for work up History of Any Multi-Drug Resistant Organisms: None Reported Past Surgical History: No Surgical Hx Reported Past Psychological History: No Psychological Hx Reported Smoking Status: Never smoker Past Alcohol Use History: None Reported Past Drug Use History: None Reported - Past Family History Father Family Medical History: No Reported History Medications and Allergies Home Medications Medication Instructions Recorded Confirmed Type Folic Acid 1 mg PO DAILY 05/05/20 01/26/21 History Rosuvastatin Calcium [Crestor] 10 mg PO DAILY 05/05/20 01/26/21 History Tofacitinib Citrate [Xeljanz Xr] 11 mg PO DAILY 05/05/20 01/26/21 History metHOTREXate sodium [Methotrexate] 17.5 mg PO WE 05/05/20 01/26/21 History ALPRAZolam [Xanax] 0.5 mg PO TID PRN 01/26/21 01/26/21 History Losartan [Cozaar] 50 mg PO DAILY 01/26/21 01/26/21 History Allergies Allergy/AdvReac Type Severity Reaction Status Date / Time No Known Allergies Allergy Verified 01/26/21 13:46 Physical Exam Vitals: Vital Signs Temp Pulse Pulse Pulse Resp BP BP 01/26/21 19:15 98 F 48 L 16 106/61 01/26/21 17:48 16 01/26/21 15:00 50 L 42 L 16 104/76 01/26/21 14:30 51 L 16 126/80 01/26/21 14:00 50 L 18 126/78 01/26/21 13:30 50 L 16 130/76 01/26/21 13:00 51 L 18 107/72 01/26/21 12:30 50 L 18 107/58 01/26/21 12:00 54 L 16 124/81 01/26/21 11:30 56 L 16 108/58 01/26/21 11:00 52 L 16 133/78 01/26/21 10:20 98.8 F 57 L 18 146/97 BP Pulse Ox 01/26/21 19:15 95 01/26/21 17:48 01/26/21 15:00 143/85 97 01/26/21 14:30 97 01/26/21 14:00 98 01/26/21 13:30 97 01/26/21 13:00 97 01/26/21 12:30 96 01/26/21 12:00 96 01/26/21 11:30 97 01/26/21 11:00 96 01/26/21 10:20 97 Intake and Output 01/26/21 01/26/21 01/26/21 06:59 14:59 22:59 Other: Weight 90.718 kg - Constitutional General appearance: no acute distress - EENT Eyes: EOMI - Neck Neck: no lymphadenopathy - Respiratory Respiratory: bilateral: CTA - Cardiovascular Rhythm: regular Heart sounds: normal: S1, S2 Abnormal Heart Sounds: no S3 Gallop - Gastrointestinal General gastrointestinal: soft, no tenderness - Neurologic Neurologic: CNII-XII intact Results CBC & Chem 7: 01/26/21 10:46 01/26/21 10:46 Labs: Abnormal Lab Results - Last 24 Hours (Table) 01/26/21 01/26/21 Range/Units 10:46 10:46 Lymphocytes # 0.6 L (1.0-4.8) k/uL Glucose 102 H (74-99) mg/dL Thrombosis Risk Factor Assmnt - Choose All That Apply Any of the Below Risk Factors Present?: No Other Risk Factors: No Thrombosis Risk Factor Assessment Level: Very Low Risk Assessment and Plan (1) Cephalgia Current Visit: Yes Status: Acute Code(s): R51.9 - HEADACHE, UNSPECIFIED SNOMED Code(s): 46780723 (2) Herpes zoster Current Visit: Yes Status: Acute Code(s): B02.9 - ZOSTER WITHOUT COMPLICATIONS SNOMED Code(s): 6672186 (3) Otitis media of left ear Current Visit: Yes Status: Acute Code(s): H66.92 - OTITIS MEDIA, UNSPECIFIED, LEFT EAR SNOMED Code(s): 10595554 Plan: Reconcile medications. Pain control for rash. Appreciate infectious disease input. We'll continue follow-up from medical perspective. Check CBC and CMP in a.m. Time with Patient: Greater than 30
[2021-01-26] MEDS ORDERED: HYDROcodone/APAP 5-325MG 1 EACH TAB PO PRN (20:48)
[2021-01-26] MEDS ORDERED: ALPRAZolam 0.5 MG TAB PO PRN (20:48)
[2021-01-26] MEDS: ATORVASTATIN 20 MG TAB PO SCH (21:10)
--- NOTE | 2021-01-26 21:40 | P.CONS ---
History of Present Illness - Reason for Consult Consult date: 01/26/21 Herpes zoster Requesting physician: Beck Ga - Chief Complaint Left-sided facial pain x 3 days - History of Present Illness Patient is a 55-year male presenting to the ER for evaluation of left- sided neck pain and development of a vesicular rash to the left side of neck and head area that been going on for the last 2 to 3 days patient been complaining of pain to the area more of a burning in nature intensity 5-6 out of 10 no radiation did not have significant swelling redness or any drainage patient did have some chills but denies high-grade fever with the symptom the patient did present to the hospital on arrival to the ER the patient was afebrile patient did have a normal white count with mild lymphopenia kidney function was normal liver enzymes are normal patient did have a CT of the brain that was negative for acute intracranial bleed patient diagnosed with herpes zoster started on acyclovir admitted to hospital infectious disease was consulted for further management of antiviral therapy Review of Systems Positive point has been mentioned in the HPI rest of the systems are negative Past Medical History Past Medical History: Hyperlipidemia, Osteoarthritis (OA) Additional Past Medical History / Comment(s): COVID in 05/07 with some cardiac affects seeing [facility] for work up History of Any Multi-Drug Resistant Organisms: None Reported Past Surgical History: No Surgical Hx Reported Past Psychological History: No Psychological Hx Reported Smoking Status: Never smoker Past Alcohol Use History: None Reported Past Drug Use History: None Reported - Past Family History Father Family Medical History: No Reported History Medications and Allergies Home Medications Medication Instructions Recorded Confirmed Type Folic Acid 1 mg PO DAILY 05/05/20 01/26/21 History Rosuvastatin Calcium [Crestor] 10 mg PO DAILY 05/05/20 01/26/21 History Tofacitinib Citrate [Xeljanz Xr] 11 mg PO DAILY 05/05/20 01/26/21 History metHOTREXate sodium [Methotrexate] 17.5 mg PO WE 05/05/20 01/26/21 History ALPRAZolam [Xanax] 0.5 mg PO TID PRN 01/26/21 01/26/21 History Losartan [Cozaar] 50 mg PO DAILY 01/26/21 01/26/21 History Allergies Allergy/AdvReac Type Severity Reaction Status Date / Time No Known Allergies Allergy Verified 01/26/21 13:46 Physical Exam Vitals: Vital Signs Temp Pulse Resp BP Pulse Ox 01/26/21 15:00 50 L 16 104/76 98 01/26/21 14:30 51 L 16 126/80 97 01/26/21 14:00 50 L 18 126/78 98 01/26/21 13:30 50 L 16 130/76 97 01/26/21 13:00 51 L 18 107/72 97 01/26/21 12:30 50 L 18 107/58 96 01/26/21 12:00 54 L 16 124/81 96 01/26/21 11:30 56 L 16 108/58 97 01/26/21 11:00 52 L 16 133/78 96 01/26/21 10:20 98.8 F 57 L 18 146/97 97 Intake and Output 01/26/21 01/26/21 01/26/21 06:59 14:59 22:59 Other: Weight 90.718 kg GENERAL DESCRIPTION: Middle-aged male lying in bed, no distress. No tachypnea or accessory muscle of respiration use. HEENT: Shows Pallor , no scleral icterus. Oral mucous membrane is dry. No pharyngeal erythema or thrush NECK: Trachea central, no thyromegaly. LUNGS: Unlabored breathing. Clear to auscultation anteriorly. No wheeze or crackle. HEART: S1, S2, regular rate and rhythm. No loud murmur ABDOMEN: Soft, no tenderness , guarding or rigidity, no organomegaly EXTREMITIES: No edema of feet. vesicular rash to the post neck and scalp as well as left shoulder area SKIN: No rash, no masses palpable. NEUROLOGICAL: The patient is awake, alert, oriented x3, mood and affect normal. Results CBC & Chem 7: 01/26/21 10:46 01/26/21 10:46 Labs: Abnormal Lab Results - Last 24 Hours (Table) 01/26/21 01/26/21 Range/Units 10:46 10:46 Lymphocytes # 0.6 L (1.0-4.8) k/uL Glucose 102 H (74-99) mg/dL Assessment and Plan Assessment: 1-patient with acute herpes zoster involving the C3-4 dermatome on the left side with no evidence of any secondary bacterial cellulitis (1) Herpes zoster Current Visit: Yes Status: Acute Code(s): B02.9 - ZOSTER WITHOUT COMPLICATIONS SNOMED Code(s): 4989767 Plan: 1-acyclovir 10 mg/kg every 8 hour 2-pain control 3-no need for systemic antibiotic therapy 4-droplet isolation We will follow on clinical condition and cultures to further adjust medication if needed Thank you for this consultation we will follow the patient along with you Time with Patient: Greater than 30
[2021-01-27] MEDS: ACYCLOVIR SODIUM 1,000 MG in SODIUM CHLORIDE 0.9% 250 ML IVPB SCH ×3 (00:06→15:56)
[2021-01-27] MEDS: ONDANSETRON ODT 4 MG TAB PO PRN ×2 (04:32→11:40)
[2021-01-27] MEDS: ALBUTEROL NEBULIZED 2.5 MG/3 ML INHALATION SCH ×4 (07:13→19:34)
[2021-01-27] MEDS: KETOROLAC 15 MG/ML 1 ML VIAL IVP PRN ×3 (07:35→23:28)
[2021-01-27] MEDS: LOSARTAN 50 MG TAB PO SCH (07:36)
[2021-01-27] MEDS: FOLIC ACID 1 MG TAB PO SCH (07:36)
[2021-01-27] MEDS: ZINC SULFATE 220 MG CAP PO SCH (07:36)
[2021-01-27 09:41] LABS: HCT 41.2 % (39.6-50.0); HGB 13.5 g/dL (13.0-17.0); MCH 30.3 pg (27.0-32.0); MCHC 32.8 g/dL (32.0-37.0); MCV 92.4 fL (80.0-97.0); Mean Platelet Volume 10.3 fL (9.5-12.2); Platelet Count 139 X 10*3/uL (140-440); RBC 4.46 X 10*6/uL (4.40-5.60); RDW 13.1 % (11.5-14.5); WBC 5.88 X 10*3/uL (4.50-10.00)
[2021-01-27] MEDS: NON FORMULARY DRUG (Tofacitinib Citrate [Xeljanz Xr] 11 MG Tab.Er.24h) PO SCH (09:55)
[2021-01-27 09:59] LABS: African American GFR (CKD) 77.3 (60.0-200.0); Albumin/Globulin Ratio 1.9 (1.60-3.17); Anion Gap 7.2 mmol/L (4.00-12.00); BUN/Creat Ratio 15.83 Ratio (12.00-20.00); Calcium 8.4 mg/dL (8.7-10.3); Carbon Dioxide 28.8 mmol/L (21.6-31.8); Globulin 2.1 g/dL (1.6-3.3); Non-African American GFR(CKD) 66.7 (60.0-200.0); Potassium 4.2 mmol/L (3.5-5.5); Total Bilirubin 1.1 mg/dL (0.2-1.2); Total Protein 6.1 g/dL (6.2-8.2)
--- NOTE | 2021-01-27 10:52 | P.PN ---
Subjective Progress Note Date: 01/27/21 Principal diagnosis: Zoster. The patient has dermatomes C2-C3 zoster. The patient is feeling a little better. No significant fever or chills. There is some mild nausea. Question medication side effect. Winifrede has been given for pain. The patient appears comfortable. Objective - Vital Signs Vital signs: Vital Signs Temp 97.6 F 01/27/21 07:00 Pulse 53 L 01/27/21 07:00 Resp 16 01/27/21 07:00 BP 121/65 01/27/21 07:00 Pulse Ox 92 L 01/27/21 07:00 Intake & Output 01/26/21 01/27/21 01/27/21 18:59 06:59 18:59 Intake Total 1200 Balance 1200 Weight 90.718 kg Intake: Intake, IV Titration 600 Amount Sodium Chloride 0.9% 1, 600 000 ml @ 75 mls/hr IV . [id number] STA Rx#:[id number] Oral 600 Other: Voiding Method Toilet Toilet # Voids 1 - Constitutional General appearance: Present: average body habitus - EENT Eyes: Absent: abnormal pupil, anicteric sclerae - Neck Neck: Absent: lymphadenopathy - Respiratory Respiratory: bilateral: CTA - Cardiovascular Rhythm: regular Heart sounds: normal: S1, S2 Abnormal Heart Sounds: Absent: S3 Gallop - Gastrointestinal General gastrointestinal: Present: soft. Absent: tenderness - Integumentary Integumentary Comment(s): Papular vesicular rash in the cervical area dermatome. Integumentary: Present: rash - Musculoskeletal Musculoskeletal: Absent: generalized weakness - Labs CBC & Chem 7: 01/27/21 04:50 01/27/21 04:50 Labs: Abnormal Lab Results - Last 24 Hours (Table) 01/26/21 01/26/21 01/27/21 Range/Units 10:46 10:46 04:50 Plt Count 139 L (140-440) X 10*3/uL Lymphocytes # 0.6 L (1.0-4.8) k/uL Glucose 102 H (74-99) mg/dL Calcium (8.7-10.3) mg/dL Total Protein (6.2-8.2) g/dL 01/27/21 Range/Units 04:50 Plt Count (140-440) X 10*3/uL Lymphocytes # (1.0-4.8) k/uL Glucose (74-99) mg/dL Calcium 8.4 L (8.7-10.3) mg/dL Total Protein 6.1 L (6.2-8.2) g/dL Assessment and Plan (1) Cephalgia Current Visit: Yes Status: Acute Code(s): R51.9 - HEADACHE, UNSPECIFIED SNOMED Code(s): 95389968 (2) Herpes zoster Current Visit: Yes Status: Acute Code(s): B02.9 - ZOSTER WITHOUT COMPLICATIONS SNOMED Code(s): 4946093 (3) Otitis media of left ear Current Visit: Yes Status: Acute Code(s): H66.92 - OTITIS MEDIA, UNSPECIFIED, LEFT EAR SNOMED Code(s): 23468666 Plan: Reconcile medications. Pain control for rash. Appreciate infectious disease input. We'll continue follow-up from medical perspective. Anticipate discharge in a.m.
[2021-01-27] MEDS: PREGABALIN 75 MG CAP PO SCH ×2 (15:56→20:13)
--- NOTE | 2021-01-27 18:05 | PN ---
PROGRESS NOTE DATE OF SERVICE: 01/27/2021. REASON FOR FOLLOWUP: rash to the posterior likely herpes zoster. INTERVAL HISTORY: The patient has been afebrile. The patient is breathing comfortably. Still complaining of burning pain to the rash area. No worsening though. . No chest pain, shortness of breath or cough. No abdominal pain. No diarrhea. EXAMINATION: Blood pressure 121/55, pulse 53, temperature 97.3, he is 92% on room air. General description is a middle-aged male up in the bed in no distress. Respiratory system: Unlabored breathing, clear to auscultation anteriorly. Heart S1, S2. Regular rate and rhythm. Abdomen soft, no tenderness. rash to the posterior neck and shoulder area with worsening with some extension to the left anterior chest area. DIAGNOSTIC IMPRESSION AND PLAN: Patient with herpes zoster involving at least C2, 3 and 4 on the left side with no and no evidence of any secondary bacterial cellulitis. Continue with Acyclovir, we will add and continue supportive care. MMODL / IJN: [id number] /
[2021-01-27] MEDS: ATORVASTATIN 20 MG TAB PO SCH (20:13)
[2021-01-28] MEDS: ACYCLOVIR SODIUM 1,000 MG in SODIUM CHLORIDE 0.9% 250 ML IVPB SCH ×2 (00:07→08:32)
[2021-01-28] MEDS: KETOROLAC 15 MG/ML 1 ML VIAL IVP PRN (07:42)
[2021-01-28 07:53] VITALS: BP 137/64; PULSE 60; RESP 18; TEMP 98.4
[2021-01-28] MEDS: ALBUTEROL NEBULIZED 2.5 MG/3 ML INHALATION SCH ×2 (07:54→11:16)
[2021-01-28] MEDS: NON FORMULARY DRUG (Tofacitinib Citrate [Xeljanz Xr] 11 MG Tab.Er.24h) PO SCH (08:30)
[2021-01-28] MEDS: LOSARTAN 50 MG TAB PO SCH (08:32)
[2021-01-28] MEDS: PREGABALIN 75 MG CAP PO SCH (08:32)
[2021-01-28] MEDS: ZINC SULFATE 220 MG CAP PO SCH (08:32)
[2021-01-28] MEDS: FOLIC ACID 1 MG TAB PO SCH (08:32)
--- NOTE | 2021-01-28 10:38 | P.DS ---
Providers Date of admission: 01/26/21 13:36 Attending physician: Paul Lea Consults: 01/26/21 13:37 Consult Physician Routine Consulting Provider: Emely Dawkins Consult Reason/Comments: Herpes zoster Do you want consulting provider notified?: Yes Primary care physician: Paul Lea - Discharge Diagnosis(es) (1) Cephalgia Current Visit: Yes Status: Acute (2) Herpes zoster Current Visit: Yes Status: Acute (3) Otitis media of left ear Current Visit: Yes Status: Acute Hospital Course: The discharge summary an outpatient once exorbitant rash related to herpes zoster. The patient has an underlying history of rheumatoid arthritis and is on antirheumatic drugs and history of Covid. The patient did quite well with IV valacyclovir. Once cleared by infectious disease, we will discharge and follow- up appropriate 5 days. Patient's pain has been controlled and is resolving. No fever or chills. Patient Condition at Discharge: Fair Plan - Discharge Summary Discharge Rx Participant: Yes New Discharge Prescriptions: New valACYclovir HCL [Valtrex] 1,000 mg PO BID #28 tablet Continue RX: metHOTREXate sodium [Methotrexate] 17.5 mg PO WE RX: Rosuvastatin Calcium [Crestor] 10 mg PO DAILY RX: Tofacitinib Citrate [Xeljanz Xr] 11 mg PO DAILY RX: Folic Acid 1 mg PO DAILY RX: ALPRAZolam [Xanax] 0.5 mg PO TID PRN PRN Reason: Anxiety RX: Losartan [Cozaar] 50 mg PO DAILY Discharge Medication List RX: Folic Acid 1 mg PO DAILY 05/05/20 [History] RX: Rosuvastatin Calcium [Crestor] 10 mg PO DAILY 05/05/20 [History] RX: Tofacitinib Citrate [Xeljanz Xr] 11 mg PO DAILY 05/05/20 [History] RX: metHOTREXate sodium [Methotrexate] 17.5 mg PO WE 05/05/20 [History] RX: ALPRAZolam [Xanax] 0.5 mg PO TID PRN 01/26/21 [History] RX: Losartan [Cozaar] 50 mg PO DAILY 01/26/21 [History] valACYclovir HCL [Valtrex] 1,000 mg PO BID #28 tablet 01/28/21 [Rx] Follow up Appointment(s)/Referral(s): Venu,Paul, MD [Primary Care Provider] - 1-2 days Discharge Disposition: HOME SELF-CARE
--- NOTE | 2021-01-28 15:56 | PN ---
PROGRESS NOTE DATE OF SERVICE: 01/28/2021 REASON FOR FOLLOWUP: Left C2-C5 zoster. INTERVAL HISTORY: The patient is afebrile. The patient is feeling better. Overall pain and discomfort to the left side of neck and face, and the forehead is better. The patient denies having any chest pain, shortness of breath or cough. No nausea, no vomiting. No abdominal pain. No diarrhea. PHYSICAL EXAMINATION: Blood pressure 137/64, pulse of 70, temperature 98.4. He is 95% on room air. General description is a middle-aged male up in the room in no distress. Examination of the head and neck area: The rash has decreased in intensity. No new rash has been noticed. Lungs unlabored breathing, clear to auscultation anteriorly. Heart S1, S2. Regular rate and rhythm. Abdomen: Soft, no tenderness. Extremities are no edema of the feet. LABS: Hemoglobin 13.1, white count of 5.8, creatinine 1.2. DIAGNOSTIC IMPRESSION AND PLAN: Patient with left C2 to C5 overall improvement on acyclovir to finish therapy with Valtrex 1 g q.8 hours for 7 days and close outpatient followup. MMODL / IJN: [id number] /
== END 2021-01-28 13:05 | disposition home or self-care (01) ==
LOC: EC 10:14 → 6NMEDSUR 13:36
PROVIDERS: ADMIT Family Medicine; ATTEND Family Medicine
DX: B02.9 Zoster without complications (principal); H66.92 Otitis media, unspecified, left ear; R51.9 Headache, unspecified; D72.810 Lymphocytopenia; E78.5 Hyperlipidemia, unspecified; M06.9 Rheumatoid arthritis, unspecified; M19.90 Unspecified osteoarthritis, unspecified site; R11.0 Nausea; Z79.52 Long term (current) use of systemic steroids; Z79.899 Other long term (current) drug therapy; Z86.16 Personal history of COVID-19
CPT/HCPCS: 96376 ×3; 96361 ×3; 96365; 96366 ×2; 96375; 99284; 36415; 80053 ×2; 82550; 83735; 85025; 85027; 87040; 86787; 70450; G0378 ×3; J0133 ×3; J0696; J1885 ×3

== ENCOUNTER 2023-03-04 00:13 | Emergency (ER) | payer BC ==
[2023-03-04] MEDS ORDERED: KETOROLAC 15 MG/ML 1 ML VIAL IM STA (00:43)
[2023-03-04] MEDS ORDERED: ONDANSETRON 4 MG/2 ML VIAL IM STA (00:44)
--- NOTE | 2023-03-04 01:41 | ED ---
Nausea/Vomiting/Diarrhea HPI - General Chief complaint: Nausea/Vomiting/Diarrhea Stated complaint: Covid+/headache Time Seen by Provider: 03/04/23 00:34 Source: patient Mode of arrival: ambulatory Limitations: no limitations - History of Present Illness Initial comments: 57-year-old male presenting with chief complaint of "I have Covid". Patient s tates that today he has been experiencing nausea, vomiting, and headache. He tested positive at home for Covid. No chest pain, difficulty breathing, abdominal pain, fever, chills, URI-like symptoms. - Related Data Home Medications Medication Instructions Recorded Confirmed Folic Acid 1 mg PO DAILY 05/05/20 01/26/21 Rosuvastatin Calcium [Crestor] 10 mg PO DAILY 05/05/20 01/26/21 Tofacitinib Citrate [Xeljanz Xr] 11 mg PO DAILY 05/05/20 01/26/21 metHOTREXate sodium [Methotrexate] 17.5 mg PO WE 05/05/20 01/26/21 ALPRAZolam [Xanax] 0.5 mg PO TID PRN 01/26/21 01/26/21 Losartan [Cozaar] 50 mg PO DAILY 01/26/21 01/26/21 Previous Rx's Medication Instructions Recorded HYDROcodone/APAP 5-325MG [[place] 1 each PO Q4HR PRN #28 tab 01/28/21 5-325] valACYclovir HCL [Valtrex] 1,000 mg PO BID #28 tablet 01/28/21 Allergies Allergy/AdvReac Type Severity Reaction Status Date / Time No Known Allergies Allergy Verified 03/04/23 00:29 Review of Systems ROS Statement: Those systems with pertinent positive or pertinent negative responses have been documented in the HPI. ROS Other: All systems not noted in ROS Statement are negative. Past Medical History Past Medical History: Hyperlipidemia, Osteoarthritis (OA) Additional Past Medical History / Comment(s): COVID in 05/07 with some cardiac affects seeing [facility] for work up History of Any Multi-Drug Resistant Organisms: None Reported Past Surgical History: No Surgical Hx Reported Past Psychological History: No Psychological Hx Reported Smoking Status: Never smoker Past Alcohol Use History: None Reported Past Drug Use History: None Reported - Past Family History Father Family Medical History: No Reported History General Exam Limitations: no limitations General appearance: alert, in no apparent distress Head exam: Present: atraumatic, normocephalic, normal inspection Eye exam: Present: normal appearance, EOMI Neck exam: Present: normal inspection, full ROM Respiratory exam: Present: normal lung sounds bilaterally. Absent: respiratory distress, wheezes, rales, rhonchi, stridor Cardiovascular Exam: Present: regular rate, normal rhythm, normal heart sounds. Absent: systolic murmur, diastolic murmur, rubs, gallop, clicks Neurological exam: Present: alert, oriented X3, CN II-XII intact Psychiatric exam: Present: normal affect, normal mood Skin exam: Present: warm, dry, intact, normal color. Absent: rash Course Vital Signs 03/04/23 03/04/23 00:26 01:56 Temperature 97.9 F 98.2 F Pulse Rate 69 77 Respiratory 18 15 Rate Blood Pressure 172/91 131/87 O2 Sat by Pulse 97 98 Oximetry Medical Decision Making - Medical Decision Making Was pt. sent in by a medical professional or institution (, PA, SUPPLY CHAIN DESIGN MANAGER, urgent care, hospital, or custodial...) When possible be specific @ -No Did you speak to anyone other than the patient for history (EMS, parent, family, police, friend...)? What history was obtained from this source @ -No Did you review nursing and triage notes (agree or disagree)? Why? @ -I reviewed and agree with nursing and triage notes Were old charts reviewed (outside hosp., previous admission, EMS record, old EKG, old radiological studies, urgent care reports/EKG's, custodial records)? Report findings @ -No old charts were reviewed Differential Diagnosis (chest pain, altered mental status, abdominal pain women, abdominal pain men, vaginal bleeding, weakness, fever, dyspnea, syncope, headache, dizziness, GI bleed, back pain, seizure, CVA, palpatations, mental health, musculoskeletal)? @ -Differential includes Covid, gastroenteritis, this is not an all inclusive list EKG interpreted by me (3pts min.). @ -As above X-rays interpreted by me (1pt min.). @ -None done CT interpreted by me (1pt min.). @ -None done U/S interpreted by me (1pt. min.). @ -None done What testing was considered but not performed or refused? (CT, X-rays, U/S, labs)? Why? @ -None What meds were considered but not given or refused? Why? @ -None Did you discuss the management of the patient with other professionals (professionals i.e. , PA, SUPPLY CHAIN DESIGN MANAGER, lab, RT, psych nurse, social sciences department chair, intellectual property lawyer, teacher, unemployment insurance hearing officer, pillowcase folder)? Give summary @ -No Was smoking cessation discussed for >3mins.? @ -No Was critical care preformed (if so, how long)? @ -No Were there social determinants of health that impacted care today? How? (Homelessness, low income, unemployed, alcoholism, drug addiction, transportation, low edu. Level, literacy, decrease access to med. care, fdc, rehab)? @ -No Was there de-escalation of care discussed even if they declined (Discuss DNR or withdrawal of care, Hospice)? DNR status @ -No What co-morbidities impacted this encounter? (DM, HTN, Smoking, COPD, CAD, Cancer, CVA, ARF, Chemo, Hep., AIDS, mental health diagnosis, sleep apnea, morbid obesity)? @ -None Was patient admitted / discharged? Hospital course, mention meds given and route, prescriptions, significant lab abnormalities, going to OR and other pertinent info. @ -57-year-old male presenting with chief complaint of "I have Covid". With to nausea, vomiting, and headache. Physical examination is conducted. Patient was given Toradol and Zofran. On reassessment he reports improvement in his symptoms. Educated on supportive management and quarantine guidelines. Follow- up with PCP. Report back to ER with any new or worsening symptoms. Discussed return parameters and answered all questions. Patient conveyed verbal understanding and agreed to the plan. I discussed this case in detail with my attending Dr. Monterroso Undiagnosed new problem with uncertain prognosis? @ -No Drug Therapy requiring intensive monitoring for toxicity (Heparin, Nitro, Insulin, Cardizem)? @ -No Were any procedures done? @ -No Diagnosis/symptom? @ -Covid Acute, or Chronic, or Acute on Chronic? @ -Acute Uncomplicated (without systemic symptoms) or Complicated (systemic symptoms)? @ -Uncomplicated Side effects of treatment? @ -No Exacerbation, Progression, or Severe Exacerbation? @ -No Poses a threat to life or bodily function? How? (Chest pain, [place], [place], pneumonia, PE, COPD, DKA, ARF, appy, cholecystitis, CVA, Diverticulitis, Homicidal, Suicidal, threat to staff... and all critical care pts) @ -No Disposition Clinical Impression: COVID Disposition: HOME SELF-CARE Condition: Good Instructions (If sedation given, give patient instructions): Acute Nausea and Vomiting (ED), COVID-19 (Coronavirus Disease 2019) (ED) Additional Instructions: Follow-up with PCP. Report back to ER with any new or worsening symptoms. Take Motrin and Tylenol for pain control. Quarantine for 5 days. After 5 days if you are symptom and fever free for 24 hours then this is followed by 5 days of strict mask usage when in public. Is patient prescribed a controlled substance at d/c from ED?: No Referrals: Paul Lea MD [Primary Care Provider] - 1-2 days Time of Disposition: 01:41
[2023-03-04 01:57] VITALS: BP 131/87; PULSE 77; RESP 15; TEMP 98.2
== END 2023-03-04 02:22 | disposition home or self-care (01) ==
LOC: EC 00:13
DX: U07.1 COVID-19 (principal); E78.5 Hyperlipidemia, unspecified; Z79.899 Other long term (current) drug therapy
CPT/HCPCS: 99284; 96372 ×2; J2405; J1885

== ENCOUNTER 2024-02-08 01:00 | Observation (INO) | payer BC, OTHER ==
[~2024-02-08 01:00] MED LIST: ACETAMINOPHEN TAB 500 MG TAB ONE; ASPIRIN 81 MG ONE
[2024-02-08] MEDS ORDERED: ACETAMINOPHEN TAB 325 MG TAB ONE ×2 (09:52→15:37)
[2024-02-08] MEDS ORDERED: FAMOTIDINE 20 MG TAB ONE ×2 (09:59→19:45)
[2024-02-08] MEDS ORDERED: ASPIRIN 81 MG ONE (09:59)
[2024-02-08] MEDS ORDERED: ATORVASTATIN 80 MG TAB ONE (09:59)
[2024-02-09] MEDS ORDERED: ASPIRIN 81 MG ONE (08:12)
--- NOTE | 2024-03-04 10:44 | CA ---
Transthoracic Echo Report Name: Iron Carpenter Age: 58 Gender: M : 1965 Exam Date: 02/08/2024 14:57 Exam Location: [facility] Ht (in): 70 Wt (lb): 220 Ordering Physician: Attending/Referring Phys: Envelope Patternmaker Zonia Wise RDCS Procedure CPT: Indications: Cardiac Hx: Technical Quality: Fair Contrast 1: Total Dose (mL): Contrast 2: Total Dose (mL): MEASUREMENTS (Male / Female) Normal Values 2D ECHO LV Diastolic Diameter PLAX 3.3 cm 4.2 - 5.9 / 3.9 - 5.3 cm LV Systolic Diameter PLAX 2.3 cm IVS Diastolic Thickness 1.2 cm 0.6 - 1.0 / 0.6 - 0.9 cm LVPW Diastolic Thickness 1.4 cm 0.6 - 1.0 / 0.6 - 0.9 cm LV Relative Wall Thickness 0.8 RV Internal Dim ED PLAX 4.1 cm LA Volume 62.2 cm??? 18 - 58 / 22 - 52 cm??? LA Volume Index 27.7 cm???/m??? 16 - 28 cm???/m??? M-MODE Aortic Root Diameter MM 3.6 cm LA Systolic Diameter MM 3.7 cm LA Ao Ratio MM 1.0 AV Cusp Separation MM 2.1 cm DOPPLER AV Peak Velocity 171.1 cm/s AV Peak Gradient 11.7 mmHg AV Mean Velocity 122.4 cm/s AV Mean Gradient 6.5 mmHg AV Velocity Time Integral 37.7 cm AI Peak Velocity 323.7 cm/s AI Peak Gradient 41.9 mmHg AI Pressure Half Time 944.3 ms LVOT Peak Velocity 145.7 cm/s LVOT Peak Gradient 8.5 mmHg LVOT Velocity Time Integral 34.7 cm MV Area PHT 2.4 cm??? Mitral E Point Velocity 70.0 cm/s Mitral A Point Velocity 94.8 cm/s Mitral E to A Ratio 0.7 MV Deceleration Time 314.0 ms MV E' Velocity 7.2 cm/s Mitral E to MV E' Ratio 9.7 TR Peak Velocity 167.2 cm/s TR Peak Gradient 11.2 mmHg Right Ventricular Systolic Press 16.2 mmHg FINDINGS Left Ventricle Mildly increased left ventricular wall thickness. Left ventricular cavity size normal. Normal left ventricular systolic function with no obvious regional wall motion abnormalities. Left ventricular ejection fraction is estimated at 55-60 %. Normal left ventricular diastolic filling pattern. Right Ventricle Mild right ventricular dilatation. Right ventricular systolic pressure within normal limits. Right Atrium Normal right atrial size. Left Atrium Mildly increased left atrial volume. Mitral Valve Structurally normal mitral valve. No mitral stenosis. Mild mitral regurgitation. Aortic Valve Trileaflet aortic valve. No aortic stenosis. mild aortic regurgitation.aortic valve sclerosis. Tricuspid Valve Structurally normal tricuspid valve. Mild tricuspid regurgitation. Pulmonic Valve Structurally normal pulmonic valve. Pericardium No pericardial effusion. Aorta Normal size aortic root and proximal ascending aorta. CONCLUSIONS 1. Normal left ventricular size and systolic function 2. Mild mitral, aortic and tricuspid regurgitation Previewed by: Dr. Raina Gray MD (Electronically Signed) Final Date: 08 February 2024 17:44
--- NOTE | 2024-03-22 16:37 | CT ---
EXAM: CT Head With Intravenous Contrast CLINICAL HISTORY: stroke like symptoms dropping heart rate elevated potassium levels cold clammy TECHNIQUE: Axial computed tomography images of the head/brain with intravenous contrast. This CT examwas performed using one or more of the following dose reduction techniques: automated exposure control, adjustment of the mA and/or kV according to patient size, and/or use of iterative reconstruction technique. COMPARISON: No relevant prior studies available. FINDINGS: Brain:No acute intracranial abnormality. Consider MRI if there is further concern. Areas of decreased attenuation in the deep cerebral white matter are consistent with small vessel ischemic/degenerative changes. The cerebral and cerebellar sulci are prominent consistent with brain atrophy. No hemorrhage. Ventricles:Unremarkable. No ventriculomegaly. Bones/joints:Unremarkable. No acute fracture. Soft tissues:Unremarkable. Vasculature:Atherosclerotic disease. Sinuses:Unremarkable as visualized. Mastoid air cells:Unremarkable as visualized. No mastoid effusion. IMPRESSION: 1. No acute intracranial abnormality. Consider MRI if there is further concern. 2. Small vessel ischemic/degenerative changes. 3. Cerebral and cerebellar atrophy. EXAM: CT Angiography Head and Neck With Intravenous Contrast CLINICAL HISTORY: stroke like symptoms dropping heart rate elevated potassium levels cold clammy TECHNIQUE: [place] [facility] [place]/head and neck CT angiography protocol performed with intravenous contrast. CTDI is 113.5 mGy and DLP is 2755.9 mGy-cm. This CT exam was performed using one or more of the following dose reduction techniques: automated exposure control, adjustment of the mA and/or kV according to patient size, and/or use of iterative reconstruction technique. MIP reconstructed images were created and reviewed. COMPARISON: None. FINDINGS: Limitations: Limited examination given thick slice axial images. This limits evaluation of subtle intracranial pathology. Consider repeat imaging with thin slice imaging or MRI if there is further concern. HEAD: Right anterior cerebral artery:Unremarkable. No occlusion or significant stenosis. Anterior communicating artery is present. No aneurysm. Right middle cerebral artery:Unremarkable. No occlusion or significant stenosis. No aneurysm. Right posterior cerebral artery:Bilateral posterior communicating arteries. No occlusion or significant stenosis. No aneurysm. Right intracranial internal carotid artery:Unremarkable. No significant stenosis. No dissection or occlusion. Right intracranial vertebral artery:Unremarkable. No significant stenosis. No dissection or occlusion. Left anterior cerebral artery:Unremarkable. No occlusion or significant stenosis. No aneurysm. Left middle cerebral artery:Unremarkable. No occlusion or significant stenosis. No aneurysm. Left posterior cerebral artery:Bilateral posterior communicating arteries. Left intracranial internal carotid artery:Unremarkable. No significant stenosis. No dissection or occlusion. Left intracranial vertebral artery:Unremarkable. No significant stenosis. No dissection or occlusion. Basilar artery:Unremarkable. No occlusion or significant stenosis. No aneurysm. Other vasculature:Atherosclerotic disease. The left vertebral artery terminates as the PICA. NECK: Right common carotid artery:Unremarkable. No significant stenosis. No dissection or occlusion. Right extracranial internal carotid artery:Atherosclerotic calcifications at the right carotid bifurcation without flow-limiting stenosis per NASCET criteria. Right external carotid artery:Unremarkable. No occlusion. Right extracranial vertebral artery:Dominant right vertebral arterywhich is favored to be congenital in nature. No significant stenosis. No dissection or occlusion. Left common carotid artery:Unremarkable. No significant stenosis. No dissection or occlusion. Left extracranial internal carotid artery:Atherosclerotic calcifications at the left carotid bifurcation without flow-limiting stenosis per NASCET criteria. Left external carotid artery:Unremarkable. No occlusion. Left extracranial vertebral artery:Unremarkable. No significant stenosis. No dissection or occlusion. Lung apices:Unremarkable as visualized. HEAD and NECK: Bones/joints:Unremarkable. No discrete lytic or blastic abnormalities. Soft tissues:Unremarkable. CAROTID STENOSIS REFERENCE USING NASCET CRITERIA: %ICA stenosis = (1 - narrowest ICA diameter/diameter of distal cervical ICA) x 100. Mild - <50%stenosis. Moderate - 50-69%stenosis. Severe - 70-94%stenosis. Near occlusion - 95-99%stenosis. Occluded - 100%stenosis. IMPRESSION: 1. Limited examination given thick slice axial images. This limits evaluation of subtle intracranial pathology. Consider repeat imaging with thin slice imaging or MRI if there is further concern. 2. No gross evidence of flow-limiting stenosis within the head or neck. 3. No evidence of aneurysm or dissection. 4. Consider MRI if there is further concern. Radiologist: Jameson Castro MD Electronically Signed: 02/08/24 05:41 Study first marked ready to read at 05:22, study last marked ready to read at 05:22, initial results transmitted at 05:41 [facility]
--- NOTE | 2024-03-22 16:39 | XR ---
EXAM: XR Chest, 2 Views CLINICAL HISTORY: chest pain TECHNIQUE: Frontal and lateral views of the chest. COMPARISON: No relevant prior studies available. FINDINGS: Lungs:No consolidation or mass. Pleural space:No effusion. Heart:No cardiomegaly. Bones/joints:No acute findings. IMPRESSION: No acute cardiopulmonary process. Radiologist: Gurjit Weiss MD Electronically Signed: 02/08/24 03:20 Study first marked ready to read at 00:36, study last marked ready to read at 00:36, initial results transmitted at 03:20 [facility]
== END 2024-02-09 14:45 | disposition home or self-care (01) ==
LOC: 3SCARD 01:00 → UNDOADMOB 09:25 → 3SCARD 09:25 → INTOOBSV 09:25 → UNDODISIN 02-09 15:01
PROVIDERS: ADMIT Hospitalist; ATTEND Hospitalist
DX: E87.5 Hyperkalemia (principal); R31.9 Hematuria, unspecified; I44.0 Atrioventricular block, first degree; R00.1 Bradycardia, unspecified; I65.22 Occlusion and stenosis of left carotid artery; I10 Essential (primary) hypertension; E78.5 Hyperlipidemia, unspecified; M06.9 Rheumatoid arthritis, unspecified; Z86.16 Personal history of COVID-19; Z79.82 Long term (current) use of aspirin; Z79.899 Other long term (current) drug therapy
CPT/HCPCS: 99285; 93005; 93306; 71046; 70496; 70450; 70498; G0378 ×2; Q9967

== ENCOUNTER 2024-03-05 08:14 | Emergency (ER) | payer OTHER ==
[2024-03-05] MEDS: SODIUM CHLORIDE 0.9% 500 ML 500 ML IV STA (08:42)
--- NOTE | 2024-03-05 08:48 | ED ---
General Adult HPI - General Chief complaint: Chest Pain Stated complaint: chest pain/high blood pressure Time Seen by Provider: 03/05/24 08:15 Source: patient, RN notes reviewed, old records reviewed Mode of arrival: wheelchair Limitations: no limitations - History of Present Illness Initial comments: This is a 58-year-old male who presents to the emergency department stating that he woke up this morning started feeling really weak and decided come to the emergency department. Patient states he was having chest pain and shortness of breath. Patient states about a month ago the same thing happened they told him his heart was bradycardic at about 28 beats a minute. Patient states yes that he was scuba diving in the river and he was so weak he could not swim back to the sides of the head to come get him out of the water once EMS arrived they t ook vitals everything was normal so he went home and he said the rest of the day he felt fine. That was at 10:30 in the morning. Patient states now the chest pain seems to be gone but he still short of breath. Patient denies headache patient denies numbness weakness. Patient denies any back pain patient has abdominal pain. - Related Data Home Medications Medication Instructions Recorded Confirmed Rosuvastatin Calcium [Crestor] 10 mg PO HS 05/05/20 03/05/24 Tofacitinib Citrate [Xeljanz Xr] 11 mg PO DAILY 05/05/20 03/05/24 Aspirin EC [Ecotrin Low Dose] 81 mg PO DAILY 03/05/24 03/05/24 Diclofenac Sodium [Voltaren] 75 mg PO BID-W/MEALS PRN 03/05/24 03/05/24 Losartan [Cozaar] 25 mg PO DAILY 03/05/24 03/05/24 Metoprolol Succinate (ER) [Toprol 25 mg PO DAILY 03/05/24 03/05/24 Xl] Allergies Allergy/AdvReac Type Severity Reaction Status Date / Time No Known Allergies Allergy Verified 03/05/24 10:09 Review of Systems ROS Statement: Those systems with pertinent positive or pertinent negative responses have been documented in the HPI. ROS Other: All systems not noted in ROS Statement are negative. Past Medical History Past Medical History: Hyperlipidemia, Osteoarthritis (OA) Additional Past Medical History / Comment(s): COVID in 05/07 with some cardiac affects seeing Audrey for work up History of Any Multi-Drug Resistant Organisms: None Reported Past Surgical History: No Surgical Hx Reported Past Psychological History: No Psychological Hx Reported Smoking Status: Never smoker Past Alcohol Use History: None Reported Past Drug Use History: None Reported - Past Family History Father Family Medical History: No Reported History General Exam - General Exam Comments Initial Comments: GENERAL: Patient is well-developed and well-nourished. Patient is nontoxic and well- hydrated and is in mild distress. ENT: Neck is soft and supple. No significant lymphadenopathy is noted. Oropharynx is clear. Moist mucous membranes. Neck has full range of motion without eliciting any pain. EYES: The sclera were anicteric and conjunctiva were pink and moist. Extraocular movements were intact and pupils were equal round and reactive to light. Eyelids were unremarkable. PULMONARY: Unlabored respirations. Good breath sounds bilaterally. No audible rales rhonchi or wheezing was noted. CARDIOVASCULAR: There is a regular rate and rhythm without any murmurs gallops or rubs. ABDOMEN: Soft and nontender with normal bowel sounds. SKIN: Skin is clear with no lesions or rashes and otherwise unremarkable. NEUROLOGIC: Patient is alert and oriented x3. Cranial nerves II through XII are grossly intact. Motor and sensory are also intact. Normal speech, volume and content. Symmetrical smile. MUSCULOSKELETAL: Normal extremities with adequate strength and full range of motion. No lower extremity swelling or edema. No calf tenderness. LYMPHATICS: No significant lymphadenopathy is noted PSYCHIATRIC: Normal psychiatric evaluation. Limitations: no limitations Course Vital Signs 03/05/24 03/05/24 03/05/24 08:15 08:27 08:30 Temperature 97.8 F Pulse Rate 44 L 44 L 44 L Pulse Rate [ Business Professor ] Respiratory 26 H 26 H 20 Rate Blood Pressure 129/85 124/72 O2 Sat by Pulse 100 100 100 Oximetry 03/05/24 03/05/24 03/05/24 08:36 08:40 09:00 Temperature 97.6 F Pulse Rate 42 L 43 L Pulse Rate [ 43 L Business Professor ] Respiratory 17 22 Rate Blood Pressure 114/75 106/92 O2 Sat by Pulse 100 100 Oximetry 03/05/24 03/05/24 03/05/24 09:09 09:15 09:30 Temperature Pulse Rate 72 65 Pulse Rate [ Business Professor ] Respiratory 38 H 21 Rate Blood Pressure 134/98 134/98 146/94 O2 Sat by Pulse 100 100 Oximetry 03/05/24 03/05/24 03/05/24 10:00 10:15 10:19 Temperature Pulse Rate 57 L 56 L 57 L Pulse Rate [ Business Professor ] Respiratory 18 14 19 Rate Blood Pressure 146/95 132/89 124/86 O2 Sat by Pulse 98 99 98 Oximetry 03/05/24 03/05/24 03/05/24 10:30 10:45 11:00 Temperature Pulse Rate 55 L 55 L 56 L Pulse Rate [ Business Professor ] Respiratory 22 12 10 L Rate Blood Pressure 124/86 125/85 121/85 O2 Sat by Pulse 89 L 97 97 Oximetry 03/05/24 03/05/24 03/05/24 11:15 11:18 11:26 Temperature 97.3 F L 97.2 F L Pulse Rate 52 L 52 L Pulse Rate [ Business Professor ] Respiratory 9 L 17 Rate Blood Pressure 123/86 120/84 O2 Sat by Pulse 98 98 Oximetry 03/05/24 03/05/24 03/05/24 11:30 11:45 12:00 Temperature Pulse Rate 52 L 49 L 46 L Pulse Rate [ Business Professor ] Respiratory 10 L 10 L Rate Blood Pressure 120/84 127/79 136/80 O2 Sat by Pulse 98 96 97 Oximetry 03/05/24 13:16 Temperature Pulse Rate Pulse Rate [ Business Professor ] Respiratory Rate Blood Pressure 136/88 O2 Sat by Pulse Oximetry Medical Decision Making - Medical Decision Making EKG is interpreted by myself. EKG shows this could represent a junctional rhythm bradycardia 44 bpm QRS is 120 QT interval is 464 QTc is 416. Patient's EKG shows no ST segment elevation or depression. EKG was repeated after the heart rate went up after atropine was given patient's EKG was interpreted by myself. EKG showed a junctional rhythm at 61 bpm QRS is 114 QT interval is 448 QTc is 450. Patient's EKG shows no ST segment ovation or depression. Was pt. sent in by a medical professional or institution (, PA, HEARING CARE PRACTITIONER, urgent care, hospital, or correction...) When possible be specific @ -No Did you speak to anyone other than the patient for history (EMS, parent, family, police, friend...)? What history was obtained from this source @ -No Did you review nursing and triage notes (agree or disagree)? Why? @ -I reviewed and agree with nursing and triage notes Were old charts reviewed (outside hosp., previous admission, EMS record, old EKG, old radiological studies, urgent care reports/EKG's, correction records)? Report findings @ -No old charts were reviewed Differential Diagnosis? @ -Differential Chest Pain: Stable Angina, Unstable Angina, STEMI, NSTEMI Aortic Dissection, Pneumothorax, Musculoskeletal, Esophageal Spasm GERD, Cholecystitis, Pancreatitis, Zoster, this is not meant to be an all-inclusive list. Differential Dyspnea: Coronary syndrome, arrhythmia, tamponade, asthma, COPD, pulmonary embolism, pneumonia, pneumothorax, pulmonary effusion, anaphylaxis, diabetic ketoacidosis, flailed chest, pulmonary contusion, diaphragmatic rupture, anemia, neuromuscular, this is not meant to be an all-inclusive list. EKG interpreted by me (3pts min.). @ -As above X-rays interpreted by me (1pt min.). @ -Chest x-ray shows no acute abnormality CT interpreted by me (1pt min.). @ -CT of the brain showed no acute abnormality. CT angio of the head and neck shows no acute abnormality. CT angio of the chest showed no PE and no aortic dissection. MRI of the brain with and without contrast showed no acute abnormality. U/S interpreted by me (1pt. min.). @ -Echocardiogram showed no acute abnormality. What testing was considered but not performed or refused? (CT, X-rays, U/S, labs)? Why? @ -None What meds were considered but not given or refused? Why? @ -None Did you discuss the management of the patient with other professionals (professionals i.e. , PA, HEARING CARE PRACTITIONER, lab, RT, psych nurse, social sciences instructor, meal attendant, teacher, commercial credit officer, manager of case)? Give summary @ -I spoke with Dr. Beverly on 3 occasions. I spoke with Dr. Ch on 4 occasions. I spoke with Dr. Gagnon. I spoke with Dr. Win. Was smoking cessation discussed for >3mins.? @ -No Was critical care preformed (if so, how long)? @ -145 minutes Were there social determinants of health that impacted care today? How? (Homelessness, low income, unemployed, alcoholism, drug addiction, transportation, low edu. Level, literacy, decrease access to med. care, usp, rehab)? @ -No Was there de-escalation of care discussed even if they declined (Discuss DNR or withdrawal of care, Hospice)? DNR status @ -No What co-morbidities impacted this encounter? (DM, HTN, Smoking, COPD, CAD, Cancer, CVA, ARF, Chemo, Hep., AIDS, mental health diagnosis, sleep apnea, morbid obesity)? @ -None Was patient admitted / discharged? Hospital course, mention meds given and route, prescriptions, significant lab abnormalities, going to OR and other pertinent info. @ -When patient initially arrived he was bradycardic and neurologically intact. Atropine was given and did not increase his heart rate to 60. Patient remained neurologically intact. Shortly after patient's arrival he seemed to have a pro blem with the volume of his speech and was unable to talk loud. Shortly thereafter he started to have difficulty saying what he wanted to and that continued to progress to the point where he was unable to follow simple commands. After the patient came back from the CAT scan of his brain he was the n stating he could not move his arms or legs and Dr. Beverly was in the room at that time and thought it was time to call a code stroke overhead which we did. Patient had a CT brain and CT angio of his head neck and they were normal. Patient also had CT angio of his chest to rule out PE and aneurysm and those were normal. Patient eventually had an echo which was normal and an MRI which was normal. Patient was started on heparin at this point. I did speak with Dr. Beverly and Dr. Ch multiple times about the patient's condition Dr. Beverly wanted the patient on heparin for the elevated troponin. I spoke with [place] on 3 occasions because [facility] initially said they could take the patient then refused and then again said they can take the patient. I also spoke with the [facility] I spoke with Dr. Romero on 2 different occasions. Just prior to the patient's transfer the patient regained all of his ability move all extremities and was able to speak fluently and understand everything we were talking about this time and at this point in time all symptoms had resolved except for the fact that his heart rate was still in the 40s. I spoke with family on at least 6 occasions. Undiagnosed new problem with uncertain prognosis? @ -No Drug Therapy requiring intensive monitoring for toxicity (Heparin, Nitro, Insulin, Cardizem)? @ -No Were any procedures done? @ -No Diagnosis/symptom? @ -Decompression sickness Acute, or Chronic, or Acute on Chronic? @ -Acute Uncomplicated (without systemic symptoms) or Complicated (systemic symptoms)? @ -Complicated Side effects of treatment? @ -No Exacerbation, Progression, or Severe Exacerbation? @ -No Poses a threat to life or bodily function? How? (Chest pain, [place], [place], pneumonia, PE, COPD, DKA, ARF, appy, cholecystitis, CVA, Diverticulitis, Homicidal, Suicidal, threat to staff... and all critical care pts) @ -Yes this could lead to further decompensation and morbidity or mortality Diagnosis/symptom? @ -CVA Acute, or Chronic, or Acute on Chronic? @ -Acute Uncomplicated (without systemic symptoms) or Complicated (systemic symptoms)? @ -Complicated Side effects of treatment? @ -None Exacerbation, Progression, or Severe Exacerbation] @ -No Poses a threat to life or bodily function? @ -Yes this could lead to further morbidity mortality Diagnosis/symptom? @ -Bradycardia Acute, or Chronic, or Acute on Chronic? @ -Acute Uncomplicated (without systemic symptoms) or Complicated (systemic symptoms)? @ -Complicated Side effects of treatment? @ -None Exacerbation, Progression, or Severe Exacerbation] @ -No Poses a threat to life or bodily function? @ -No Diagnosis/symptom? @ -NSTEMI Acute, or Chronic, or Acute on Chronic? @ -Acute Uncomplicated (without systemic symptoms) or Complicated (systemic symptoms)? @ -Complicated Side effects of treatment? @ -None Exacerbation, Progression, or Severe Exacerbation] @ -No Poses a threat to life or bodily function? @ -Yes this could lead to an OH and endorgan dysfunction - Lab Data Result diagrams: 03/05/24 08:42 03/05/24 08:42 Lab Results 03/05/24 03/05/24 03/05/24 Range/Units 08:42 08:42 08:42 WBC 6.9 (3.8-10.6) k/uL RBC 5.17 (4.30-5.90) m/uL Hgb 15.4 (13.0-17.5) gm/dL Hct 46.3 (39.0-53.0) % MCV 89.5 (80.0-100.0) fL MCH 29.8 (25.0-35.0) pg MCHC 33.3 (31.0-37.0) g/dL RDW 12.8 (11.5-15.5) % Plt Count 201 (150-450) k/uL MPV 7.6 Neutrophils % 77 % Lymphocytes % 13 % Monocytes % 7 % Eosinophils % 1 % Basophils % 1 % Neutrophils # 5.3 (1.3-7.7) k/uL Lymphocytes # 0.9 L (1.0-4.8) k/uL Monocytes # 0.5 (0-1.0) k/uL Eosinophils # 0.0 (0-0.7) k/uL Basophils # 0.0 (0-0.2) k/uL PT 10.8 (10.0-12.5) sec INR 1.0 (<1.2) APTT 22.3 (22.0-30.0) sec D-Dimer (<0.60) mg/L FEU Sample Site ABG pH (7.35-7.45) ABG pCO2 (35-45) mmHg ABG pO2 (83-108) mmHg ABG HCO3 (21-25) mmol/L ABG Total CO2 (19-24) mmol/L ABG O2 Saturation (94-97) % ABG Base Excess mmol/L Reji Test Hemoglobin (13.0-17.5) gm/dL FiO2 % Sodium 139 (137-145) mmol/L Potassium 3.8 (3.5-5.1) mmol/L Chloride 102 (98-107) mmol/L Carbon Dioxide 23 (22-30) mmol/L Anion Gap 14 mmol/L BUN 17 (9-20) mg/dL Creatinine 1.38 H (0.66-1.25) mg/dL Est GFR (CKD-EPI)AfAm 64 (>60 ml/min/1.73 sqM) Est GFR (CKD-EPI)NonAf 55 (>60 ml/min/1.73 sqM) Glucose 129 H (74-99) mg/dL Calcium 10.0 (8.4-10.2) mg/dL Magnesium 2.2 (1.6-2.3) mg/dL Total Bilirubin 1.4 H (0.2-1.3) mg/dL AST 80 H (17-59) U/L ALT 29 (4-49) U/L Alkaline Phosphatase 58 (38-126) U/L Troponin I (0.000-0.034) ng/mL Total Protein 7.7 (6.3-8.2) g/dL Albumin 5.1 H (3.5-5.0) g/dL TSH 2.080 (0.465-4.680) mIU/L Urine Opiates Screen (NotDetected) Ur Oxycodone Screen (NotDetected) Urine Methadone Screen (NotDetected) Ur Barbiturates Screen (NotDetected) U Tricyclic Antidepress (NotDetected) Ur Phencyclidine Scrn (NotDetected) Ur Amphetamines Screen (NotDetected) U Methamphetamines Scrn (NotDetected) U Benzodiazepines Scrn (NotDetected) Urine Cocaine Screen (NotDetected) U Marijuana (THC) Screen (NotDetected) 03/05/24 03/05/24 03/05/24 Range/Units 08:42 08:42 10:52 WBC (3.8-10.6) k/uL RBC (4.30-5.90) m/uL Hgb (13.0-17.5) gm/dL Hct (39.0-53.0) % MCV (80.0-100.0) fL MCH (25.0-35.0) pg MCHC (31.0-37.0) g/dL RDW (11.5-15.5) % Plt Count (150-450) k/uL MPV Neutrophils % % Lymphocytes % % Monocytes % % Eosinophils % % Basophils % % Neutrophils # (1.3-7.7) k/uL Lymphocytes # (1.0-4.8) k/uL Monocytes # (0-1.0) k/uL Eosinophils # (0-0.7) k/uL Basophils # (0-0.2) k/uL PT (10.0-12.5) sec INR (<1.2) APTT (22.0-30.0) sec D-Dimer 3.09 H (<0.60) mg/L FEU Sample Site Left Radial ABG pH 7.46 H (7.35-7.45) ABG pCO2 33 L (35-45) mmHg ABG pO2 83 (83-108) mmHg ABG HCO3 23 (21-25) mmol/L ABG Total CO2 25 H (19-24) mmol/L ABG O2 Saturation 97.4 H (94-97) % ABG Base Excess 0.2 mmol/L Reji Test Yes Hemoglobin 13.6 (13.0-17.5) gm/dL FiO2 28 % Sodium (137-145) mmol/L Potassium (3.5-5.1) mmol/L Chloride (98-107) mmol/L Carbon Dioxide (22-30) mmol/L Anion Gap mmol/L BUN (9-20) mg/dL Creatinine (0.66-1.25) mg/dL Est GFR (CKD-EPI)AfAm (>60 ml/min/1.73 sqM) Est GFR (CKD-EPI)NonAf (>60 ml/min/1.73 sqM) Glucose (74-99) mg/dL Calcium (8.4-10.2) mg/dL Magnesium (1.6-2.3) mg/dL Total Bilirubin (0.2-1.3) mg/dL AST (17-59) U/L ALT (4-49) U/L Alkaline Phosphatase (38-126) U/L Troponin I 3.620 H* (0.000-0.034) ng/mL Total Protein (6.3-8.2) g/dL Albumin (3.5-5.0) g/dL TSH (0.465-4.680) mIU/L Urine Opiates Screen (NotDetected) Ur Oxycodone Screen (NotDetected) Urine Methadone Screen (NotDetected) Ur Barbiturates Screen (NotDetected) U Tricyclic Antidepress (NotDetected) Ur Phencyclidine Scrn (NotDetected) Ur Amphetamines Screen (NotDetected) U Methamphetamines Scrn (NotDetected) U Benzodiazepines Scrn (NotDetected) Urine Cocaine Screen (NotDetected) U Marijuana (THC) Screen (NotDetected) 03/05/24 Range/Units 12:15 WBC (3.8-10.6) k/uL RBC (4.30-5.90) m/uL Hgb (13.0-17.5) gm/dL Hct (39.0-53.0) % MCV (80.0-100.0) fL MCH (25.0-35.0) pg MCHC (31.0-37.0) g/dL RDW (11.5-15.5) % Plt Count (150-450) k/uL MPV Neutrophils % % Lymphocytes % % Monocytes % % Eosinophils % % Basophils % % Neutrophils # (1.3-7.7) k/uL Lymphocytes # (1.0-4.8) k/uL Monocytes # (0-1.0) k/uL Eosinophils # (0-0.7) k/uL Basophils # (0-0.2) k/uL PT (10.0-12.5) sec INR (<1.2) APTT (22.0-30.0) sec D-Dimer (<0.60) mg/L FEU Sample Site ABG pH (7.35-7.45) ABG pCO2 (35-45) mmHg ABG pO2 (83-108) mmHg ABG HCO3 (21-25) mmol/L ABG Total CO2 (19-24) mmol/L ABG O2 Saturation (94-97) % ABG Base Excess mmol/L Reji Test Hemoglobin (13.0-17.5) gm/dL FiO2 % Sodium (137-145) mmol/L Potassium (3.5-5.1) mmol/L Chloride (98-107) mmol/L Carbon Dioxide (22-30) mmol/L Anion Gap mmol/L BUN (9-20) mg/dL Creatinine (0.66-1.25) mg/dL Est GFR (CKD-EPI)AfAm (>60 ml/min/1.73 sqM) Est GFR (CKD-EPI)NonAf (>60 ml/min/1.73 sqM) Glucose (74-99) mg/dL Calcium (8.4-10.2) mg/dL Magnesium (1.6-2.3) mg/dL Total Bilirubin (0.2-1.3) mg/dL AST (17-59) U/L ALT (4-49) U/L Alkaline Phosphatase (38-126) U/L Troponin I (0.000-0.034) ng/mL Total Protein (6.3-8.2) g/dL Albumin (3.5-5.0) g/dL TSH (0.465-4.680) mIU/L Urine Opiates Screen Not Detected (NotDetected) Ur Oxycodone Screen Not Detected (NotDetected) Urine Methadone Screen Not Detected (NotDetected) Ur Barbiturates Screen Not Detected (NotDetected) U Tricyclic Antidepress Not Detected (NotDetected) Ur Phencyclidine Scrn Not Detected (NotDetected) Ur Amphetamines Screen Not Detected (NotDetected) U Methamphetamines Scrn Not Detected (NotDetected) U Benzodiazepines Scrn Not Detected (NotDetected) Urine Cocaine Screen Not Detected (NotDetected) U Marijuana (THC) Screen Not Detected (NotDetected) Disposition Clinical Impression: Acute non-ST elevation myocardial infarction (NSTEMI), Decompression sickness, Bradycardia, CVA (cerebral vascular accident) Disposition: OTHER INSTITUTION NOT DEFINED Referrals: Paul eLa MD [Primary Care Provider] - 1-2 days - Out of Hospital Transfer - Req. Specs Out of Hospital Transfer - Requested Specifics: Other Emergency Center ([place] receiving ER)
[2024-03-05 09:00] LABS: Partial Thromboplastin Time 22.3 sec (22.0-30.0); Prothrombin Time 10.8 sec (10.0-12.5)
[2024-03-05 09:04] LABS: ALT 29 U/L (4-49); AST 80 U/L (17-59); African American GFR (CKD) 64 (>60 ml/min/1.73 sqM); Albumin 5.1 g/dL (3.5-5.0); Alkaline Phosphatase 58 U/L (38-126); Anion Gap 14 mmol/L; Blood Urea Nitrogen 17 mg/dL (9-20); Carbon Dioxide 23 mmol/L (22-30); Chloride 102 mmol/L (98-107); Glucose 129 mg/dL (74-99); Magnesium 2.2 mg/dL (1.6-2.3); Non-African American GFR(CKD) 55 (>60 ml/min/1.73 sqM); Potassium 3.8 mmol/L (3.5-5.1); Sodium 139 mmol/L (137-145); Total Bilirubin 1.4 mg/dL (0.2-1.3); Total Protein 7.7 g/dL (6.3-8.2)
[2024-03-05] MEDS: ATROPINE SULFATE 0.1 MG/ML 10ML SYRINGE IV STA (09:07)
[2024-03-05 09:13] LABS: Basophils % (A) 1 %; Eosinophils % (A) 1 %; HCT 46.3 % (39.0-53.0); HGB 15.4 gm/dL (13.0-17.5); Lymphocytes # (A) 0.9 k/uL (1.0-4.8); Lymphocytes % (A) 13 %; MCH 29.8 pg (25.0-35.0); MCHC 33.3 g/dL (31.0-37.0); MCV 89.5 fL (80.0-100.0); Mean Platelet Volume 7.6; Monocytes # (A) 0.5 k/uL (0-1.0); Monocytes % (A) 7 %; Neutrophils # (A) 5.3 k/uL (1.3-7.7); Neutrophils % (A) 77 %; Platelet Count 201 k/uL (150-450); RBC 5.17 m/uL (4.30-5.90); RDW 12.8 % (11.5-15.5); WBC 6.9 k/uL (3.8-10.6)
--- NOTE | 2024-03-05 09:34 | CT ---
EXAMINATION TYPE: CT chest angio for PE CT DLP: 1963 mGycm, Automated exposure control for dose reduction was used. DATE OF EXAM: 03/05/2024 9:01 AM COMPARISON: 05/08/2020, 03/05/2024. CLINICAL INDICATION: Male, 58 years old with history of Short of breath; pe TECHNIQUE/CONTRAST: CTA scan of the thorax is performed with IV Contrast, patient injected with 85 mL of Isovue 300, MIP images are created and reviewed these are created on a separate workstation.. FINDINGS: Pulmonary Artery: There is no evidence for a central filling defect within the pulmonary vasculature to suggest acute pulmonary embolism. Limited evaluation of the segmental and subsegmental branches se condary to bolus timing and motion. The pulmonary artery is of normal size. Lungs/Pleura: No evidence of focal consolidation, pleural effusion or pneumothorax. Airway: Large airways are patent. Heart: The heart is mildly enlarged for size. Vasculature: No evidence of aortic aneurysm. Mediastinum: No gross evidence of adenopathy. Musculoskeletal: No acute osseous abnormalities Soft Tissues/lymph nodes: Unremarkable. Lower neck: No significant findings. Upper Abdomen: Right upper quadrant cholecystectomy clips. IMPRESSION: No evidence of central pulmonary embolism. Limited evaluation of the segmental and subsegmental branc hes. [facility], , 03/05/2024 9:32 AM
[2024-03-05] MEDS: ASPIRIN 300 MG SUPP RECTAL STA (09:52)
[2024-03-05] MEDS: ASPIRIN 81 MG PO STA (09:54)
--- NOTE | 2024-03-05 10:07 | CT ---
EXAMINATION TYPE: CT brain wo con CT DLP: 1227.3 mGycm, Automated exposure control for dose reduction was used. DATE OF EXAM: 03/05/2024 9:26 AM COMPARISON: 01/26/2021. CLINICAL INDICATION: Male, 58 years old with history of Altered mental, AMS TECHNIQUE: Brain: Axial CT images of the brain were obtained with coronal and sagittal reformats created and rev iewed. Contrast used: None. Oral contrast used: None. FINDINGS: Brain: Extra-axial spaces: No abnormal extra-axial fluid collections. Ventricular system: Within normal limits Cerebral parenchyma: No acute intraparenchymal hemorrhage or mass effect. The hoover-white junction is well differentiated. Cerebellum: Unremarkable. Mass effect: No evidence of midline shift. Intracranial vasculature: unremarkable Soft tissues: Normal. Calvarium/osseous structures: No depressed skull fracture. Paranasal sinuses and mastoid air cells: Mild scattered paranasal sinus disease. Visualized orbits: Orbital contents are intact. IMPRESSION: No acute intracranial process. [facility], , 03/05/2024 10:05 AM
--- NOTE | 2024-03-05 10:09 | P.CNNES ---
History of Present Illness Consult date: 03/05/24 Requesting physician: Omega Casey Reason for Consult: Strokelike symptoms History of Present Illness: Patient is a 58-year-old right-handed male, otherwise healthy, came to the hospital today at 8:14 AM for generalized weakness, tiredness, not feeling well, and while in the ER, patient developed acute neurological changes. Patient's family including his , son and daughter were present who provided with a history. Patient yesterday went for scuba diving, which she did for half an hour. He often goes with his son, but yesterday he went by himself. While he was scuba diving, he became tired, could not get to the ladder. He mated sodium to the wall and stayed there, until paramedics came, and helped him get to the ladder and brought him up. He was fine all day yesterday. This a.m. she sta rted complaining of lightheadedness, feeling weak, felt had no strength, therefore his brought him to the hospital. While he was in the hospital, he was talking normally, alert and orient x 4, neurologically intact. However at around 8:27 AM, patient developed acute mental status change, when he started talking with whisper, frequently licking his lips, then said he cannot move his arms, cannot move his legs and was feeling very cold. He would perseverate on feeling cold, and cannot move his arms. Stroke code was activated. CT head was performed, which was normal. CTA showed no large vessel occlusion. Patient also was found to have elevated cardiac enzymes. Dr. Casey called me, and I came to see the patient immediately. As per ED staff, initially patient was not able to repeat, or speak hardly at all. However when I came and saw the patient, he was able to speak, but very slow, hesitant speech but there was no dysarthria. The speech was mostly clear, but very broken, slow, hypophonic. Often he would speak in whispers. Patient keeps on repeating he is feeling cold, he cannot move his arms. Sometimes he would speak full sentences like "why are you asking all these questions". He was complaining of chest pain, occurring intermittently. Vital signs on arrival blood pressure 129/85, pulse rate 44 temperature 97.8. Patient has bradycardia. Blood test shows normal CBC, PT PTT, normal electrolytes, BUN 17 creatinine 1.38. AST is 80, ALT 29. Troponin is 3.62. TSH 2.08. EKG showed uncertain regular rhythm. CT of the chest showed no evidence of central pulmonary embolism. Limited evaluation of the segmental and subsegmental branches. CT head revealed no acute process. I personally reviewed CT head, agree with the findings. Patient's daughter, who is a nurse at [employer] mentions that patient is very healthy does not take any medications except for arthritis. Turns out patient is taking aspirin 81 mg daily, losartan, Crestor 10 mg and Xeljanz. He is taking these medications regularly. He has never smoked, does not drink al cohol. Review of Systems All pertinent positives and negatives mentioned in HPI. Patient has been healthy except for arthritis. Now having some chest pain. He has bradycardia. Past Medical History Past Medical History: Hyperlipidemia, Osteoarthritis (OA) Additional Past Medical History / Comment(s): COVID in 05/07 with some [facility] History of Any Multi-Drug Resistant Organisms: None Reported Past Surgical History: No Surgical Hx Reported Past Psychological History: No Psychological Hx Reported Smoking Status: Never smoker Past Alcohol Use History: None Reported Past Drug Use History: None Reported - Past Family History Father Family Medical History: No Reported History Medications and Allergies Home Medications Medication Instructions Recorded Confirmed Type Rosuvastatin Calcium [Crestor] 10 mg PO HS 05/05/20 03/05/24 History Tofacitinib Citrate [Xeljanz Xr] 11 mg PO DAILY 05/05/20 03/05/24 History Aspirin EC [Ecotrin Low Dose] 81 mg PO DAILY 03/05/24 03/05/24 History Diclofenac Sodium [Voltaren] 75 mg PO BID-W/MEALS PRN 03/05/24 03/05/24 History Losartan [Cozaar] 25 mg PO DAILY 03/05/24 03/05/24 History Metoprolol Succinate (ER) [Toprol 25 mg PO DAILY 03/05/24 03/05/24 History Xl] Allergies Allergy/AdvReac Type Severity Reaction Status Date / Time No Known Allergies Allergy Verified 03/05/24 10:09 Physical Examination - Vital Signs Vital Signs: Vital Signs Temp Pulse Pulse Resp BP Pulse Ox 03/05/24 09:09 72 38 H 134/98 100 03/05/24 09:00 97.6 F 43 L 22 106/92 100 03/05/24 08:40 42 L 17 114/75 100 03/05/24 08:36 43 L 03/05/24 08:30 44 L 20 124/72 100 03/05/24 08:27 44 L 26 H 100 03/05/24 08:15 97.8 F 44 L 26 H 129/85 100 Intake and Output 03/04/24 03/05/24 03/05/24 22:59 06:59 14:59 Other: Weight 99.79 kg Patient is a middle aged male, who is in no acute distress. Patient is complaining of feeling cold, complaining of chest pain. Patient is alert awake. On asking about the month, patient said was January, but then said was February. Regarding his age, patient said I am about 58 or 59. He was not very sure. Very hesitant speech. Slow, perseverating on above. His limited speech was very clear with no dysarthria. He was able to name knuckles, year, finger, but for earlobe, patient said was bottom of the ear. Initially he was not able to repeat, but later he was very hesitant but able to repeat the sentence. Attention, concentration is decreased and fund of knowledge is limited due to mental status. On cranial nerve examination, pupils are equal, round and reacting to light, visual langston are full on confrontation, with no neglect on double simultaneous stimulation. Extraocular muscles are intact with no nystagmus. While checking for facial strength, patient said "am I doing it", very hesitant to show his teeth but he did and was symmetric. His tongue protrudes to the midline. Palatal elevation and sensation normal, hearing and shoulder shrug diminished bilaterally, facial sensation normal. On muscle strength testing, patient able to hold his arms only for 5 seconds and then drops it down. Keeps on saying I am very tired. Likewise he drops the legs very fast bilaterally. Deep tendon reflexes are symmetric somewhat diminished but plantars are downgoing. Sensory to touch is equal. He did not cooperate for checking for neglect. Cerebellar function were attempted and patient was very hesitant, slow, barely able to lift his arm, but I did not notice any ataxia in the upper extremities with limited testing. He cannot perform [id number] testing. Tone and bulk of muscles normal. Gait deferred.. On general examination, there is no carotid bruit or murmur, S1-S2 audible. Chest is clear on consultation. Abdomen is soft nontender. No organomegaly, bowel sounds present. Peripheral pulses are present. No peripheral edema. Results - Laboratory Findings CBC and BMP: 03/05/24 08:42 03/05/24 08:42 Abnormal Lab Findings: Abnormal Labs 03/05/24 03/05/24 03/05/24 08:42 08:42 08:42 Lymphocytes # 0.9 L Creatinine 1.38 H Glucose 129 H Total Bilirubin 1.4 H AST 80 H Troponin I 3.620 H* Albumin 5.1 H Assessment and Plan Assessment: * Acute onset of neurological symptoms with bilaterally symmetric focal deficits including hesitant facial movement, symmetric weakness of his arms and legs, hesitant speech. Exact cause remains uncertain. Differential diagnosis includes decompression related illness/air embolism/scuba diving related effects, although symptoms started 20 hours after scuba diving. CVA in the differential, but less likely. Current NIH stroke scale is 11. * Elevated cardiac enzymes, rule out acute coronary syndrome * Hypertension * Hyperlipidemia * Osteoarthritis Plan: * Patient has developed acute neurological symptoms with bilateral focal deficits. Patient also has acute elevation of cardiac enzymes. Patient's symptoms appears somewhat global. Uncertain if related to scuba diving, or some embolic phenomenon, but would expect some focality if it was a stroke. Brainstem stroke in the differential, but no significant cranial nerve deficits. * I had a very prolonged discussion with Dr. Gagnon, and discussed about patient's clinical symptoms. He felt patient was a high risk for TNK, as symptoms are possibly related to delayed effects of pressure changes related to scuba diving. He was against tPA. I discussed with investment consultant who also felt patient has fluctuating neurological symptoms, appears to be a high risk therefore was also against TNK. * I discussed with patient and his family members about the recommendations. Informed them about the risks and benefits of TNK, versus heparin drip for elevated cardiac enzymes. Patient wanted TNK stating "it will happen again". As patient was not in appropriate mental condition, therefore discussed with patient's family, who were against TNK. They agree with starting heparin. Patient has received aspirin 300 mg rectally. * CTA of head and neck revealed no evidence of dissection of the cervical internal carotid arteries or vertebral arteries or any evidence of significant stenosis at the carotid bifurcation. No evidence of intracranial high-grade stenosis or intracranial aneurysm. No large vessel occlusion. * Urine drug screen * Fasting a.m. lipid panel, hemoglobin A1c. * Stat MRI of the brain with and without contrast. * Suggest transfer to [facility] for possible hyperbaric treatment. * Also discussed with ED physician multiple times. * Total time spent 1.5 hours including coordinating care. * Neurology will follow. Thank you for the consult. Addendum: MRI of the brain with and without contrast revealed no evidence of intracranial mass, acute/subacute infarct or abnormal enhancement. Minimal scattered white matter changes in the left frontal lobe, no evidence of restricted diffusion. I personally reviewed MR agree with the findings. Patient transferred to [facility]. Urine drug screen came back negative. Time with Patient: Greater than 30
--- NOTE | 2024-03-05 10:09 | CT ---
EXAMINATION TYPE: CT angio head neck CT DLP: 824 mGycm, Automated exposure control for dose reduction was used. DATE OF EXAM: 03/05/2024 9:57 AM COMPARISON: CT brain same day. CLINICAL INDICATION: Male, 58 years old with history of Altered mental status; PHH, STROKE TECHNIQUE: Axially acquired helical CT angiogram of the head and neck was obtained with contrast. Axi al images are supplemented with 3D reconstructions and MIP images which were post-processed at an in dependent workstation. NASCET criteria used. Contrast used:65 mL of Isovue 370 with IV Contrast, Oral contrast used: None. FINDINGS: CTA HEAD: No evidence of acute intracranial hemorrhage, mass effect, or midline shift. The ventricles, sulci, a nd cisterns are unremarkable. The visualized portions of the internal carotid arteries, middle cerebral arteries, anterior cerebral arteries, and posterior cerebral arteries are patent. Atherosclerosis of the intracranial intracrani al internal carotid arteries without evidence for hemodynamically significant stenosis. Diminutive ri ght vertebral artery intracranial portion. Possibly terminating as a posterior inferior cerebellar ar yamileth. The basilar and vertebral arteries are patent. CTA NECK: Right Carotid System: The common carotid and external carotid arteries are patent. There is less than 25% stenosis at the c arotid bifurcation secondary to calcified/noncalcified plaque. The rest of the internal carotid arter y is patent. Left Carotid System: The common carotid and external carotid arteries are patent. There is less than 25% stenosis at the c arotid bifurcation secondary to calcified/noncalcified plaque. The rest of the internal carotid arter y is patent. Vertebral arteries are patent without evidence hemodynamically significant stenosis. There is a three-vessel aortic arch. The origins of the great vessels are patent. No evidence of hemo dynamically significant stenosis. Upper thorax: IMPRESSION: 1. No evidence of dissection of the cervical internal carotid arteries or vertebral arteries or any e vidence of significant stenosis at the carotid bifurcations. 2. No evidence of intracranial high-grade stenosis or intracranial aneurysm. [facility], , 03/05/2024 10:07 AM
[2024-03-05 11:02] LABS: ABG Base Excess 0.2 mmol/L; ABG HCO3 23 mmol/L (21-25); ABG Oxygen Saturation 97.4 % (94-97); ABG PCO2 33 mmHg (35-45); ABG PH 7.46 (7.35-7.45); ABG PO2 83 mmHg (83-108); ABG TCO2 25 mmol/L (19-24); Allen Test Performed? Yes
[2024-03-05 11:27] VITALS: TEMP 97.2
[2024-03-05 12:15] VITALS: PULSE 46; RESP 10
[2024-03-05 12:43] LABS: Amphetamine Screen,Urine Not Detected (NotDetected); Barbiturate Screen,Urine Not Detected (NotDetected); Benzodiazepines Screen,Urine Not Detected (NotDetected); Cocaine Screen,Urine Not Detected (NotDetected); Methadone Screen, Urine Not Detected (NotDetected); Opiate Screen,Urine Not Detected (NotDetected); Oxycodone Screen, Urine Not Detected (NotDetected); Phencyclidine Screen,Urine Not Detected (NotDetected); Tricyclic Antidepressant,Urine Not Detected (NotDetected); Urn Cannabinoid Scrn Not Detected (NotDetected)
[2024-03-05] MEDS: HEPARIN SOD,PORK IN 0.45% NACL 25,000 UNIT in 0.45% NACL 1 250ML.BAG IV SCH (12:58)
--- NOTE | 2024-03-05 12:59 | MR ---
EXAMINATION TYPE: MR brain wo/w con DATE OF EXAM: 03/05/2024 12:47 PM CLINICAL INDICATION: Male, 58 years old with history of Altered Mental Status. r/o possible stroke; P HH, COMPARISON: CT head same day TECHNIQUE: Multi planar, multi sequence imaging was performed through the brain including: T1, T2, In version recovery, susceptibility weighted imaging and gradient echo imaging and Diffusion weighted im aging. The patient was then given intravenous contrast and multi planar, T1 fat-saturation images wer e obtained. IV Contrast: 10 cc Gadavist. FINDINGS: The hoover-white junctions, ventricular system, basal cisterns appear unremarkable. Diffusion-weighted imaging shows no evidence of restricted diffusion to suggest acute/subacute infarct. Intracranial ar terial flow voids are maintained. Midline structures show no abnormality. Few scattered white matter changes in the left frontal lobe without evidence of restricted diffusion. The susceptibility weighte d images do not reveal any evidence for micro-hemorrhage. After administration of gadolinium, no abno rmal enhancement is seen. The bone marrow signal is within normal limits. Paranasal sinuses and mastoid air cells: No significant paranasal sinus disease. Visualized orbits: Orbital contents are intact. IMPRESSION: 1. No evidence of intracranial mass, acute/subacute infarct, or abnormal enhancement. 2. Minimal scattered white matter changes in left frontal lobe no evidence of restricted diffusion. [facility], , 03/05/2024 12:57 PM
[2024-03-05] MEDS: HEPARIN SODIUM 1,000 UN/ML (10ML VL) IV ONE (13:15)
[2024-03-05 13:21] VITALS: BP 136/88
--- NOTE | 2024-03-05 13:43 | P.CRDCN ---
History of Present Illness History of present illness: HISTORY OF PRESENT ILLNESS: This is a 58-year-old male with a past medical history significant for hypertension, hyperlipidemia, and carotid stenosis. Patient follows in the office with Dr. Damon. We have been asked to see the patient in consultation for bradycardia. Patient examined at the bedside the emergency room. Patient's is present. Apparently yesterday the patient went scuba diving which he normally does. She states he is very active and also walks 2 miles a day. Ap parently while he was scuba diving he felt tired and ended up swimming to the edge of the water. EMS was called and helped get him out of the water. He apparently started to feel better so he went home. This morning he was complaining of feeling weak and his brought him to the hospital. According to nursing, when the patient arrived he was alert and oriented x 4 and without any neurological deficits. Shortly after arriving to the hospital patient began to have acute mental status changes. Patient complaining of his arms feeling "fuzzy", frequent lip smacking, and having a blank stare. During examination, patient was unable to communicate with provider. He was unable to answer simple yes or no questions. Dr. Beverly asked the patient to repeat " the kat is blue in [place]" and the patient was unable to do so. Code stroke was called at this time. Patient was initially noted to be bradycardic with a heart rate in the 40s. At the time of examination bedside telemetry reveals sinus mechanism with a heart rate around 60. While reviewing telemetry it appears the patient has been going in and out of a junctional rhythm and sinus bradycardia. No further episodes of significant bradycardia or AV block noted. No atrial fibrillation noted on telemetry. The patient did have an event monitor placed recently at the cardiology office. Telemetry tracings have been obtained from the cardiology office with no acute events noted on event monitor. DIAGNOSTICS: - EKG reveals junctional rhythm -CT of the brain: Negative for acute process -CT angio: No evidence of dissection of the cervical internal carotid arteries or vertebral arteries or evidence of significant stenosis at the carotid bifurcations. No evidence of intracranial high-grade stenosis or intracranial aneurysm. -Chest CT: Negative for pulmonary embolism -MRI of the brain: No evidence of intracranial mass, acute/subacute infarct, or abnormal enhancement - Laboratory data: WBC 6.9. Hemoglobin 15.4. Platelet count 201. D-dimer 3.09. Sodium 139. Potassium 3.8. BUN 17. Creatinine 1.38. Magnesium 2.2. Troponin 3.6-0. TSH 2.080. - Current home cardiac medications include losartan 25 mg daily, aspirin 81 mg daily, rosuvastatin 10 mg at night, and metoprolol succinate 25 mg daily -Patient underwent echocardiogram in January 2024 revealing ejection fraction 55 to 60%, mild mitral regurgitation, mild aortic regurgitation and mild tricuspid regurgitation -Patient underwent stress echo in November 2021 which was negative for ischemia REVIEW OF SYSTEMS: At the time of my exam: Able to obtain thorough review of systems secondary to altered mental status PHYSICAL EXAM: VITAL SIGNS: Reviewed. GENERAL: Well-developed in no acute distress. HEENT: Head is normocephalic. Pupils are equal, round. Sclerae anicteric. Mucous membranes of the mouth are moist. Neck supple. No JVD or thyromegaly LUNGS: Respirations even and unlabored. Lungs essentially clear to auscultation bilaterally. HEART: Bradycardic. Regular rate and rhythm. S1 and S2 heard. ABDOMEN: Soft. Nondistended. Nontender. EXTREMITIES: Normal range of motion. No clubbing or cyanosis. Peripheral pulses intact. No lower extremity edema NEUROLOGIC: Awake and alert. Confused. Unable to answer questions or repeat simple phrases. ASSESSMENT: Altered mental status, etiology unclear Junctional rhythm/sinus bradycardia Hypertension Hyperlipidemia Carotid stenosis, right 16-49% and left 50-79% Elevated troponin, no evidence of Type I MS, etiology unclear PLAN: Continue telemetry monitoring Avoid any AV gray blocking agents Trend troponins Patient to receive aspirin 300 mg rectally Patient has been started on IV heparin Consult neurology Further recommendations pending patient course Nurse practitioner note has been reviewed by physician. Signing provider agrees with the documented findings, assessment, and plan of care documented by [employer] as a scribe. Past Medical History Past Medical History: Hyperlipidemia, Osteoarthritis (OA) Additional Past Medical History / Comment(s): COVID in 05/07 with some cardiac affects seeing [facility] for work up History of Any Multi-Drug Resistant Organisms: None Reported Past Surgical History: No Surgical Hx Reported Past Psychological History: No Psychological Hx Reported Smoking Status: Never smoker Past Alcohol Use History: None Reported Past Drug Use History: None Reported - Past Family History Father Family Medical History: No Reported History Medications and Allergies Home Medications Medication Instructions Recorded Confirmed Type Rosuvastatin Calcium [Crestor] 10 mg PO HS 05/05/20 03/05/24 History Tofacitinib Citrate [Xeljanz Xr] 11 mg PO DAILY 05/05/20 03/05/24 History Aspirin EC [Ecotrin Low Dose] 81 mg PO DAILY 03/05/24 03/05/24 History Diclofenac Sodium [Voltaren] 75 mg PO BID-W/MEALS PRN 03/05/24 03/05/24 History Losartan [Cozaar] 25 mg PO DAILY 03/05/24 03/05/24 History Metoprolol Succinate (ER) [Toprol 25 mg PO DAILY 03/05/24 03/05/24 History Xl] Allergies Allergy/AdvReac Type Severity Reaction Status Date / Time No Known Allergies Allergy Verified 03/05/24 10:09 Physical Exam Vitals: Vital Signs Temp Pulse Pulse Resp BP Pulse Ox 03/05/24 13:16 136/88 03/05/24 12:00 46 L 136/80 97 03/05/24 11:45 49 L 10 L 127/79 96 03/05/24 11:30 52 L 10 L 120/84 98 03/05/24 11:26 97.2 F L 03/05/24 11:18 97.3 F L 52 L 17 120/84 98 03/05/24 11:15 52 L 9 L 123/86 98 03/05/24 11:00 56 L 10 L 121/85 97 03/05/24 10:45 55 L 12 125/85 97 03/05/24 10:30 55 L 22 124/86 89 L 03/05/24 10:19 57 L 19 124/86 98 03/05/24 10:15 56 L 14 132/89 99 03/05/24 10:00 57 L 18 146/95 98 03/05/24 09:30 146/94 03/05/24 09:15 65 21 134/98 100 03/05/24 09:09 72 38 H 134/98 100 03/05/24 09:00 97.6 F 43 L 22 106/92 100 03/05/24 08:40 42 L 17 114/75 100 03/05/24 08:36 43 L 03/05/24 08:30 44 L 20 124/72 100 03/05/24 08:27 44 L 26 H 100 03/05/24 08:15 97.8 F 44 L 26 H 129/85 100 Intake and Output 03/04/24 03/05/24 03/05/24 22:59 06:59 14:59 Other: Weight 99.79 kg Results 03/05/24 08:42 03/05/24 08:42 Cardiac Enzymes 03/05/24 03/05/24 Range/Units 08:42 08:42 AST 80 H (17-59) U/L Troponin I 3.620 H* (0.000-0.034) ng/mL Coagulation 03/05/24 Range/Units 08:42 PT 10.8 (10.0-12.5) sec APTT 22.3 (22.0-30.0) sec CBC 03/05/24 Range/Units 08:42 WBC 6.9 (3.8-10.6) k/uL RBC 5.17 (4.30-5.90) m/uL Hgb 15.4 (13.0-17.5) gm/dL Hct 46.3 (39.0-53.0) % Plt Count 201 (150-450) k/uL Comprehensive Metabolic Panel 03/05/24 Range/Units 08:42 Sodium 139 (137-145) mmol/L Potassium 3.8 (3.5-5.1) mmol/L Chloride 102 (98-107) mmol/L Carbon Dioxide 23 (22-30) mmol/L BUN 17 (9-20) mg/dL Creatinine 1.38 H (0.66-1.25) mg/dL Glucose 129 H (74-99) mg/dL Calcium 10.0 (8.4-10.2) mg/dL AST 80 H (17-59) U/L ALT 29 (4-49) U/L Alkaline Phosphatase 58 (38-126) U/L Total Protein 7.7 (6.3-8.2) g/dL Albumin 5.1 H (3.5-5.0) g/dL Current Medications Generic Name Dose Route Start Last Admin Trade Name Freq PRN Reason Stop Dose Admin Heparin Sodium/Sodium Chloride 250 mls @ 9.999 mls/hr 03/05/24 12:45 03/05/24 12:58 25,000 unit/ Sodium Chloride IV 10.02 units/kg/hr .Q24H NICOLAS 9.999 mls/hr Administration Protocol 10.02 UNITS/KG/HR Intake and Output 03/04/24 03/05/24 03/05/24 22:59 06:59 14:59 Other: Weight 99.79 kg Patient Weight 03/06/24 06:59 Weight 99.79 kg 03/05/24 08:42 03/05/24 08:42
== END 2024-03-05 20:41 | disposition other institution (70) ==
LOC: EC 08:14
CPT/HCPCS: 36415; 36600; 70450; 70496; 70498; 70553; 71275; 80053; 80306; 82805; 83735; 84443; 84484; 85025; 85379; 85610; 85730; 93005; 96361; 96365; 96375; 99291; 99292